=== PATIENT | female | born 1945 | race Caucasian/White ===

== ENCOUNTER 2016-10-13 07:50 | Inpatient (IN) | payer MEDICARE, BC ==
[~2016-10-13] VITALS: Ht 167.6 cm; Wt 101.7 kg
[2016-10-13 07:50] VITALS: BP 130/49
[~2016-10-13 07:50] MED LIST: ACETAMINOPHEN500 M3 PO; ALLOPURINOL100 MG PO; AMIODARONE 200200 MG PO; AMLODIPINE10 MG PO; ASPIRIN 81MG TA81 MG PO; BRILINTA90 M1 PO; CARVEDILOL6.25 MG PO; COREG25 MG PO; D3-5050000 IU PO; DEPAKOTE 500MG500 MG PO; ELIQUIS5 MG PO; HUMALOG100 U/ML SC; KEPPRA 500 MG500 MG PO; LANTUS INS100 UNITS/ SC; LASIX 20MG. TAB20 MG PO; LEVAQUIN 750 M750 MG PO; LISINOPRIL 20MG20 MG PO; NITROGLYCERIN0.4 MG SL; OMEPRAZOLE10 MG PO; PANTOPRAZOLE SO40 MG PO; PREDNISONE 20MG20 MG PO; PRILOSEC20 M1 PO; RIVASTIGMINE TAR6 MG PO; SITAGLIPTIN PO; SYNTHROID 0.10.15 MG PO; TAMIFLU 75MG CA75 MG PO; VITAMIN D31000 IU PO; ZINC GLUCONATE PO; ZOCOR20 MG PO; ZOFRAN4 MG PO
[2016-10-13 08:20] LABS: URINE BILIRUBIN - DIPSTICK NEGATIVE (NEG); URINE BLOOD NEGATIVE (NEG)
--- NOTE | 2016-10-13 08:30 | Emergency Room Report ---
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 Clinical Suspician of Infection? Mental Status: Sepsis Risk: Have you (or family members/close friends) recently traveled outside the [place]? If Yes, where/when: Have you had exposure to infectious disease within the past month? TB? Other? Specify: Six day hx of functional decline. Not speaking as much, usually gets up and "walks a little bit" at the [place] but now just transferring to chair. Has been started on Bactrim but when given the Bactrim she vomits it back up, per my d/w/ her . She vomited yesterday, and the Bactrim was not given today, and she did not vomit. She presents with low grade fever. She has a shunt, and it was CT 'd routinely by Dr. Connor two weeks ago and CT was at baseline, also per . He states that when she has UTI's she doesn't speak as much, doesn't eat as much, and has less activity; these are her symptoms today. No abdominal pain or chest pain; no headache; no rash. -Patient admitted to [facility] in 03/18 due t o ARF, wide complex tachycardia vs. paced rhythm and continued on Amiodarone and Lisinopril following cardiology consult. ALLERGIES Coded Allergies: Cephalosporins (03/20/16) ceftriaxone (From ROCEPHIN) (03/20/16) cefuroxime (From CEFTIN) (03/20/16) nitrofurantoin (From MACROBID) (03/20/16) tetanus and diphtheria toxoids (TETANUS & DIPHTHERIA TOXOIDS) (03/20/16) tuberculin,PPD,multi-puncture (10/13/16) Home Medications Reported Medications Levetiracetam (Keppra 500 Mg Tablet) 500 MG PO BID Divalproex Sodium (Depakote) 500 MG PO TID Sitagliptin Phosphate (Sitagliptin 50MG Tablet) 100 MG PO DAILY Acetaminophen (Acetaminophen Extra Strength) 650 MG PO Q4HP PRN PAIN Zinc Gluconate (ZINC) 50 MG PO DAILY CHOLECALCIFEROL (VITAMIN D3) (Vitamin D) 1,000 IUNITS PO DAILY Levothyroxine Sodium (Synthroid 0.15MG) 0.175 MG PO DAILY Rivastigmine Tartrate (Rivastigmine) 6 MG PO BID Simvastatin (Zocor) 20 MG PO QHS Insulin Glargine (Lantus Insulin Vial) 47 UNITS SC QHS Insulin Lispro, Recombinant (Humalog 100 UNITS/ML 10ML) 0 UNITS SC ACHS Pantoprazole Sodium (Pantoprazole 40MG) 40 MG PO DAILY Amiodarone Hcl (Amiodarone 200MG) 200 MG PO DAILY Ticagrelor (Brilinta) 90 MG PO BID Amlodipine Besylate (Amlodipine) 5 MG PO DAILY Carvedilol (Coreg 25MG) 25 MG PO BID NITROGLYCERIN (Nitrostat) 0.4 MG SL [id number] PRN CHEST PAIN LISINOPRIL (Lisinopril) 20 MG PO DAILY Furosemide (Lasix) 20 MG PO DAILY Sertraline Hcl (Sertraline HCl) 25 MG PO DAILY SULFAMETHOXAZOLE W/TRIMETHOPRI (Bactrim Ds Tab) 1 TABLET PO BID History Medical History General CAD? Yes Angina: No NM: No Hypertension? Yes Hyperlipidemia? No CHF? No DVT? No PE? No COPD? No Asthma? No Anemia? No GERD? Yes Gastric ulcers? No GI Bleed? No Hernia? No Thyroid Problems? Yes Hypothyroidism? Yes CVA? Yes Seizures? Yes Diabetes? Yes Insulin Dependent: Yes Insulin Pump: No Home FSBS? Yes Renal Insuffiency? Yes End Stage Renal Disease? No UTI? No Stones? No BPH? No GB Disease: No Nephritic Syndrome? No Asplenia? No Hepatitis? No Sickle Cell Disease? No Arthritis? No Migraines? No Cataracts? Yes Glaucoma? No MRSA? No HIV? 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 No Depression? No Cancer? No More? Yes Additional hx: GOUT Stent placement one month ago for complicated coronary disease. His has been on platelet inhibitor since that time Immunization Hx DT/Tetanus Unknown Pneumonia Refuses Surgical Hx Previous Surgery?Y RT KNEE REPLACEMENT SINUS X2 CATARACTS PACEMAKER Family History Family Hx Diabetes Yes CAD No Hypertension No Hyperlipidemia No Cancer No TB No Social History Alcohol Alcohol: No Review of Systems All Other Systems Reviewed and Negative Constitutional see HPI, fever, weakness Cardiovascular denies no symptoms reported, denies see HPI Gastrointestinal see HPI, denies abdominal pain Genitourinary see HPI. Psychiatric/Neurological see HPI, denies weakness, other (generalized weakness reported) Comment No billy "spells" or sz activity per detailed d/w . Physical Exam Vital Signs Vital Signs Date Time Temp Pulse Resp B/P Pulse O2 O2 Flow FiO2 Ox Delivery Rate 10/13 0928 77 20 142/52 96 3 10/13 0827 70 20 138/73 92 3 10/13 0750 100.4 70 20 130/49 93 3 General Appearance normal appearance, WD/WN, no apparent distress Eye Exam - bilateral eye normal exam, bilateral eye PERRL, bilateral eye EOMI Ear, Nose, Throat hearing grossly normal Neck normal inspection, non-tender, supple, full range of motion Respiratory Status Yes: trachea midline, chest symmetrical, non tender chest. No: respiratory distress, tender on palpation, use of accessory muscles, pain on inspiration, pain on expiration, productive cough, non productive cough. Lung Sounds bilateral: normal breath sounds, lungs clear. Cardiovascular normal exam, no peripheral edema, no gallop, no JVD, no murmur, no rub, normal peripheral pulses (hands mildly edematous L>R) Peripheral Pulses Peripheral Pulses 2+ radial (R), 2+ radial (L), 2+ dorsalis pedis (R), 2+ dorsalis pedis (L) Gastrointestinal normal bowel sounds, normal exam, non tender, soft, no organomegaly, no pulsatile mass, no guarding, no rebound Extremities non-tender, normal range of motion, normal inspection, normal capillary refill, no calf tenderness, no pedal edema (moves legs symmetrically) Strength 2 Lower Ext (L), 2 Lower Ext (R), 4 Upper Ext (L), 4 Upper Ext (R) 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 Electromechanical Equipment Tester are equal, but she seems globally weak and only barely able to elevate both legs against gravity. No tremor. No unilateral findings. Glascow Coma Scale Glascow Coma Scale Response Value EYE response: 4 Spontaneously 4 MOTOR response: 6 OBEYS 6 VERBAL response: 5 Oriented & Converses 5 Total 15 Skin intact, warm/dry, pallor Medical Decision Making LABS/Meds/Orders Pt receiving controlled substance in ED? No Results/Orders Laboratory Tests 10/13/16 0910: Sodium 140, Potassium 4.6, Chloride 102, Carbon Dioxide 29, BUN 44 H, Creatinine 2.6 H, Estimated Creat Clear 32 L, Estimated GFR (MDRD) , Glucose 152 H, Calcium 9.2, Total Bilirubin 0.4, AST 27, ALT 43, Alkaline Phosphatase 80, Creatine Kinase 124, CK-MB (CK-2) Rel Index 0.4, CK and CKMB Interp < 0.5, Troponin I < 0.02, Total Protein 8.2, Albumin 3.0 L, Globulin 5.2 H, Albumin/ Globulin Ratio 0.6 L 10/13/16 0830: Lactic Acid 0.8, WBC 6.8, RBC 4.06 L, Hgb 12.7, Hct 38.0, MCV 93.4, RDW 16.4, Plt Count 163, MPV 7.4, Gran % 59.3, Gran # 4.0, Lymphocytes % 29.6, Monocytes % 8.3, Eosinophils % 2.3, Basophils % 0.4, Lymphocytes # 2.0, Monocytes # 0.6, Eosinophils # 0.2, Basophils # 0.0, PUBS MCHC 32.9, MCH 30.7 10/13/16 0810: Urine Color YELLOW, Urine Appearance SL CLOUDY, Urine pH 6.5, Ur Specific [place] 1.015, Urine Protein NEGATIVE, Urine Ketones NEGATIVE, Urine Blood NEGATIVE, Urine Nitrate NEGATIVE, Urine Bilirubin NEGATIVE, Urine Urobilinogen 2.0, Ur Leukocyte Esterase 2+ H, Urine WBC 20-50, Ur Squamous Epith Cells 3-5, Urine Bacteria 2+, Urine Glucose NEGATIVE Current Medication Orders Sig/Charlene Start time Last Medication Dose Route Stop Time Status Admin Levofloxacin/Dextrose 100 ML .STK-MED ONE 10/13 928 DC IV Levofloxacin/Dextrose 100 ML ONCE ONE 10/13 914 AC 10/13 IV 10/13 1014 0931 Sodium Chloride 10 ML PRN PRN 10/13 814 IV 10/14 08 Acetaminophen 650 MG ONCE ONE 10/13 809 DC 10/13 OH 10/13 810 0815 Acetaminophen 0 .STK-MED ONE 10/13 0808 DC OH Orders Procedure Date/time Status DIET-NOTHING BY MOUTH 10/13 L Active Decision to admit 10/[address] HEAD REQ 10/13 08 Complete ELECTROCARDIOGRAM REQUEST 10/13 810 Active IV SALINE LOCK 10/13 810 Active URINARY CATHETER INSERT 10/13 810 Active CULTURE, BLOOD 10/13 810 Active URINALYSIS/COMPLETE 10/13 810 Complete LACTIC ACID 10/13 810 Complete CBC WITH AUTO DIFF 10/13 810 Complete CARDIAC ENZYMES 10/13 810 Complete CHEM 12 PROFILE 10/13 810 Complete 12 LEAD EKG-CASSIE (INITIAL) 10/13 809 Active CULTURE, URINE 10/13 809 Active CM/EKG CM/EKG EKG rate, NSR, rhythm, no evid. of ischemic chgs, no ectopy, normal QRS, normal OH, normal EKG (LVH; NSR 77) XRAY/CT/US XRAY/CT/US XRAY chest XR interpretation by reviewed by me (report reviewed) Xray Results normal/NAD CT head CT interpretation by reviewed by me (report reviewed) Time results known: 916 CT Results normal/NAD (atrophy no interval change) Consult MD Physician Consult Time Called 0936 Reason Pt. Condition Progress ED Progress Notes Date 10/13/16 Time 0856 Comment Patient listed as a full code on chart; on d/w , he and his have not discussed her code status. He agrees to have this conversation with her and other family members and her PCP and he wishes to complete paperwork at some other time, but doubts she would want full resuscitation. 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
--- NOTE | 2016-10-13 08:30 | Emergency Room Report ---
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 Clinical Suspician of Infection? Mental Status: Sepsis Risk: Have you (or family members/close friends) recently traveled outside the [place]? If Yes, where/when: Have you had exposure to infectious disease within the past month? TB? Other? Specify: Six day hx of functional decline. Not speaking as much, usually gets up and "walks a little bit" at the [place] but now just transferring to chair. Has been started on Bactrim but when given the Bactrim she vomits it back up, per my d/w/ her . She vomited yesterday, and the Bactrim was not given today, and she did not vomit. She presents with low grade fever. She has a shunt, and it was CT 'd routinely by Dr. Connor two weeks ago and CT was at baseline, also per . He states that when she has UTI's she doesn't speak as much, doesn't eat as much, and has less activity; these are her symptoms today. No abdominal pain or chest pain; no headache; no rash. -Patient admitted to [facility] in 03/18 due t o ARF, wide complex tachycardia vs. paced rhythm and continued on Amiodarone and Lisinopril following cardiology consult. ALLERGIES Coded Allergies: Cephalosporins (03/20/16) ceftriaxone (From ROCEPHIN) (03/20/16) cefuroxime (From CEFTIN) (03/20/16) nitrofurantoin (From MACROBID) (03/20/16) tetanus and diphtheria toxoids (TETANUS & DIPHTHERIA TOXOIDS) (03/20/16) tuberculin,PPD,multi-puncture (10/13/16) Home Medications Reported Medications Levetiracetam (Keppra 500 Mg Tablet) 500 MG PO BID Divalproex Sodium (Depakote) 500 MG PO TID Sitagliptin Phosphate (Sitagliptin 50MG Tablet) 100 MG PO DAILY Acetaminophen (Acetaminophen Extra Strength) 650 MG PO Q4HP PRN PAIN Zinc Gluconate (ZINC) 50 MG PO DAILY CHOLECALCIFEROL (VITAMIN D3) (Vitamin D) 1,000 IUNITS PO DAILY Levothyroxine Sodium (Synthroid 0.15MG) 0.175 MG PO DAILY Rivastigmine Tartrate (Rivastigmine) 6 MG PO BID Simvastatin (Zocor) 20 MG PO QHS Insulin Glargine (Lantus Insulin Vial) 47 UNITS SC QHS Insulin Lispro, Recombinant (Humalog 100 UNITS/ML 10ML) 0 UNITS SC ACHS Pantoprazole Sodium (Pantoprazole 40MG) 40 MG PO DAILY Amiodarone Hcl (Amiodarone 200MG) 200 MG PO DAILY Ticagrelor (Brilinta) 90 MG PO BID Amlodipine Besylate (Amlodipine) 5 MG PO DAILY Carvedilol (Coreg 25MG) 25 MG PO BID NITROGLYCERIN (Nitrostat) 0.4 MG SL [id number] PRN CHEST PAIN LISINOPRIL (Lisinopril) 20 MG PO DAILY Furosemide (Lasix) 20 MG PO DAILY Sertraline Hcl (Sertraline HCl) 25 MG PO DAILY SULFAMETHOXAZOLE W/TRIMETHOPRI (Bactrim Ds Tab) 1 TABLET PO BID History Medical History General CAD? Yes Angina: No PR: No Hypertension? Yes Hyperlipidemia? No CHF? No DVT? No PE? No COPD? No Asthma? No Anemia? No GERD? Yes Gastric ulcers? No GI Bleed? No Hernia? No Thyroid Problems? Yes Hypothyroidism? Yes CVA? Yes Seizures? Yes Diabetes? Yes Insulin Dependent: Yes Insulin Pump: No Home FSBS? Yes Renal Insuffiency? Yes End Stage Renal Disease? No UTI? No Stones? No BPH? No GB Disease: No Nephritic Syndrome? No Asplenia? No Hepatitis? No Sickle Cell Disease? No Arthritis? No Migraines? No Cataracts? Yes Glaucoma? No MRSA? No HIV? 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 No Depression? No Cancer? No More? Yes Additional hx: GOUT Stent placement one month ago for complicated coronary disease. His has been on platelet inhibitor since that time Immunization Hx DT/Tetanus Unknown Pneumonia Refuses Surgical Hx Previous Surgery?Y RT KNEE REPLACEMENT SINUS X2 CATARACTS PACEMAKER Family History Family Hx Diabetes Yes CAD No Hypertension No Hyperlipidemia No Cancer No TB No Social History Alcohol Alcohol: No Review of Systems All Other Systems Reviewed and Negative Constitutional see HPI, fever, weakness Cardiovascular denies no symptoms reported, denies see HPI Gastrointestinal see HPI, denies abdominal pain Genitourinary see HPI. Psychiatric/Neurological see HPI, denies weakness, other (generalized weakness reported) Comment No billy "spells" or sz activity per detailed d/w . Physical Exam Vital Signs Vital Signs Date Time Temp Pulse Resp B/P Pulse O2 O2 Flow FiO2 Ox Delivery Rate 10/13 0928 77 20 142/52 96 3 10/13 0827 70 20 138/73 92 3 10/13 0750 100.4 70 20 130/49 93 3 General Appearance normal appearance, WD/WN, no apparent distress Eye Exam - bilateral eye normal exam, bilateral eye PERRL, bilateral eye EOMI Ear, Nose, Throat hearing grossly normal Neck normal inspection, non-tender, supple, full range of motion Respiratory Status Yes: trachea midline, chest symmetrical, non tender chest. No: respiratory distress, tender on palpation, use of accessory muscles, pain on inspiration, pain on expiration, productive cough, non productive cough. Lung Sounds bilateral: normal breath sounds, lungs clear. Cardiovascular normal exam, no peripheral edema, no gallop, no JVD, no murmur, no rub, normal peripheral pulses (hands mildly edematous L>R) Peripheral Pulses Peripheral Pulses 2+ radial (R), 2+ radial (L), 2+ dorsalis pedis (R), 2+ dorsalis pedis (L) Gastrointestinal normal bowel sounds, normal exam, non tender, soft, no organomegaly, no pulsatile mass, no guarding, no rebound Extremities non-tender, normal range of motion, normal inspection, normal capillary refill, no calf tenderness, no pedal edema (moves legs symmetrically) Strength 2 Lower Ext (L), 2 Lower Ext (R), 4 Upper Ext (L), 4 Upper Ext (R) 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 Water Filter Cleaner are equal, but she seems globally weak and only barely able to elevate both legs against gravity. No tremor. No unilateral findings. Glascow Coma Scale Glascow Coma Scale Response Value EYE response: 4 Spontaneously 4 MOTOR response: 6 OBEYS 6 VERBAL response: 5 Oriented & Converses 5 Total 15 Skin intact, warm/dry, pallor Medical Decision Making LABS/Meds/Orders Pt receiving controlled substance in ED? No Results/Orders Laboratory Tests 10/13/16 0910: Sodium 140, Potassium 4.6, Chloride 102, Carbon Dioxide 29, BUN 44 H, Creatinine 2.6 H, Estimated Creat Clear 32 L, Estimated GFR (MDRD) , Glucose 152 H, Calcium 9.2, Total Bilirubin 0.4, AST 27, ALT 43, Alkaline Phosphatase 80, Creatine Kinase 124, CK-MB (CK-2) Rel Index 0.4, CK and CKMB Interp < 0.5, Troponin I < 0.02, Total Protein 8.2, Albumin 3.0 L, Globulin 5.2 H, Albumin/ Globulin Ratio 0.6 L 10/13/16 0830: Lactic Acid 0.8, WBC 6.8, RBC 4.06 L, Hgb 12.7, Hct 38.0, MCV 93.4, RDW 16.4, Plt Count 163, MPV 7.4, Gran % 59.3, Gran # 4.0, Lymphocytes % 29.6, Monocytes % 8.3, Eosinophils % 2.3, Basophils % 0.4, Lymphocytes # 2.0, Monocytes # 0.6, Eosinophils # 0.2, Basophils # 0.0, PUBS MCHC 32.9, MCH 30.7 10/13/16 0810: Urine Color YELLOW, Urine Appearance SL CLOUDY, Urine pH 6.5, Ur Specific [place] 1.015, Urine Protein NEGATIVE, Urine Ketones NEGATIVE, Urine Blood NEGATIVE, Urine Nitrate NEGATIVE, Urine Bilirubin NEGATIVE, Urine Urobilinogen 2.0, Ur Leukocyte Esterase 2+ H, Urine WBC 20-50, Ur Squamous Epith Cells 3-5, Urine Bacteria 2+, Urine Glucose NEGATIVE Current Medication Orders Sig/Charlene Start time Last Medication Dose Route Stop Time Status Admin Levofloxacin/Dextrose 100 ML .STK-MED ONE 10/13 928 DC IV Levofloxacin/Dextrose 100 ML ONCE ONE 10/13 914 AC 10/13 IV 10/13 1014 0931 Sodium Chloride 10 ML PRN PRN 10/13 814 IV 10/14 08 Acetaminophen 650 MG ONCE ONE 10/13 809 DC 10/13 ME 10/13 810 0815 Acetaminophen 0 .STK-MED ONE 10/13 0808 DC ME Orders Procedure Date/time Status DIET-NOTHING BY MOUTH 10/13 L Active Decision to admit 10/[address] HEAD REQ 10/13 08 Complete ELECTROCARDIOGRAM REQUEST 10/13 810 Active IV SALINE LOCK 10/13 810 Active URINARY CATHETER INSERT 10/13 810 Active CULTURE, BLOOD 10/13 810 Active URINALYSIS/COMPLETE 10/13 810 Complete LACTIC ACID 10/13 810 Complete CBC WITH AUTO DIFF 10/13 810 Complete CARDIAC ENZYMES 10/13 810 Complete CHEM 12 PROFILE 10/13 810 Complete 12 LEAD EKG-CASSIE (INITIAL) 10/13 809 Active CULTURE, URINE 10/13 809 Active CM/EKG CM/EKG EKG rate, NSR, rhythm, no evid. of ischemic chgs, no ectopy, normal QRS, normal ME, normal EKG (LVH; NSR 77) XRAY/CT/US XRAY/CT/US XRAY chest XR interpretation by reviewed by me (report reviewed) Xray Results normal/NAD CT head CT interpretation by reviewed by me (report reviewed) Time results known: 916 CT Results normal/NAD (atrophy no interval change) Consult MD Physician Consult Time Called 0936 Reason Pt. Condition Progress ED Progress Notes Date 10/13/16 Time 0856 Comment Patient listed as a full code on chart; on d/w , he and his have not discussed her code status. He agrees to have this conversation with her and other family members and her PCP and he wishes to complete paperwork at some other time, but doubts she would want full resuscitation. 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
[2016-10-13 08:41] LABS: LYMPH % 29.6 % (10-50.0)
[2016-10-13 08:46] LABS: HEMOGLOBIN 12.7 g/dL (12.2-16.2)
[2016-10-13] MEDS ORDERED: LISINOPRIL 20MG20 MG PO (08:55)
[2016-10-13] MEDS ORDERED: LASIX20 MG PO (08:59)
[2016-10-13] MEDS ORDERED: SERTRALINE25 MG PO (09:04)
--- NOTE | 2016-10-13 09:05 | RADIOLOGY REPORT PS360 ---
CHEST-PORTABLE HISTORY: FEBRILE ORDERING PHYSICIAN: Pamela Roy MD PATIENT AGE: 71 years COMPARISON: 03/20/2016 FINDINGS: Normal heart size. Cardiac pacemaker device is once again noted. A INSPECTION ENGINEER shunt traverses the right hemithorax. There is some vascular crowding in the right infrahilar region. No lobar consolidation or collapse. There is an old right clavicular fracture. IMPRESSION: As above, no change with no acute finding.
--- NOTE | 2016-10-13 09:05 | RADIOLOGY REPORT PS360 ---
CHEST-PORTABLE HISTORY: FEBRILE ORDERING PHYSICIAN: Pamela Roy MD PATIENT AGE: 71 years COMPARISON: 03/20/2016 FINDINGS: Normal heart size. Cardiac pacemaker device is once again noted. A MOLD MACHINE OPERATOR shunt traverses the right hemithorax. There is some vascular crowding in the right infrahilar region. No lobar consolidation or collapse. There is an old right clavicular fracture. IMPRESSION: As above, no change with no acute finding.
--- NOTE | 2016-10-13 09:11 | RADIOLOGY REPORT PS360 ---
CT HEAD W/O CONTRAST HISTORY: Altered mental status, altered level consciousness, confusion AMS ORDERING PHYSICIAN: Pamela Roy MD PATIENT AGE: 71 years COMPARISON: 09/20/2016 TECHNIQUE: Axial images obtained without contrast. Brain and bone windows reviewed. FINDINGS: No midline shift, mass effect, intracranial hemorrhage, hydrocephalus, or extra-axial fluid collection is evident. There is a BP shunt from the right parietal approach with the tip near the midline at the body of the lateral ventricles as before. There is generalized atrophy with mild prominence of the ventricles likely related to the atrophy. Hypoattenuation is noted in the periventricular and subcortical region consistent with ischemic gliotic change from microvascular disease. The calvarium has an unremarkable appearance. No mastoid effusion. The visualized paranasal sinuses are unremarkable. IMPRESSION: 1. No acute intracranial pathology. 2. Atrophy with chronic ischemic changes. 3. No change right parietal the patient.
[2016-10-13] MEDS ORDERED: BACTRIM DS 8001 TA1 PO (09:19)
[2016-10-13 09:29] LABS: BUN 44 mg/dL (7-18)
--- NOTE | 2016-10-13 10:40 | PHARMACY CLINIC NOTE ---
Patient Demographics Patient Demographics Admission date: 10/13/16 Date: 10/13/16 Time: 1040 Allergies Coded Allergies: Cephalosporins (03/20/16) ceftriaxone (From ROCEPHIN) (03/20/16) cefuroxime (From CEFTIN) (03/20/16) nitrofurantoin (From MACROBID) (03/20/16) tetanus and diphtheria toxoids (TETANUS & DIPHTHERIA TOXOIDS) (03/20/16) tuberculin,PPD,multi-puncture (10/13/16) HEIGHT- FT: 5 IN: 6.00 K.328 VTE General Information Labs: Laboratory Tests 10/13 0830 Hematology Hgb (12.2 - 16.2 g/dL) 12.7 Hct (37.0 - 47.0 %) 38.0 Plt Count (142 - 424 K/mm3) 163 Disclaimer The following section includes nursing documentation that has been pulled in for pharmacy review. VTE prophylaxis NQF 0371 VTE prophylaxis ordered? Yes Type of prophylaxis/treatment: ICD at 1040
[2016-10-13 10:50] VITALS: BP 132/66
[2016-10-13 11:12] VITALS: BP 132/66
--- NOTE | 2016-10-13 14:38 | HISTORY AND PHYSICAL REPORT ---
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 reports she typically walks a little bit, feeds herself and is able to recognize him when he visits. She has a TRAIN CONTROLLER shunt and is followed by Dr. Connor. state she has routine CT scans, the most recent 2 weeks ago which he states was a baseline. She was started on Bactrim at the care home several days when her UA was found to be positive for UTI. Urine culture was sent; however it showed no growth. On presentation to the ED, she was found to be lethargic and confused. UA was positive. She was given a dose of IV Levaquin and admitted to acute care for further evaluation. On admission to the floor, she was alert and oriented to self, awake and answering simple questions. denies congestion, however reports occasional cough and difficulty swallowing this week. Past medical history: Family HX Diabetes Yes CAD Yes Hypertension Yes Hyperlipidemia Yes Cancer Yes TB No Immunization HX DT/Tetanus Refuses Pneumonia Received In Past TB Test in last year No General CAD? Yes Angina: No MT: No Hypertension? Yes Hyperlipidemia? No CHF? No DVT? No PE? No COPD? No Asthma? No Anemia? No GERD? Yes Gastric ulcers? No GI Bleed? No Hernia? No Thyroid Problems? No Hypothyroidism? Yes CVA? Yes Seizures? Yes Diabetes? Yes Insulin Dependent: No Insulin Pump: No Home FSBS? Yes Renal Insuffiency? Yes UTI? Yes Stones? No BPH? No GB Disease: No Nephritic Syndrome? No Asplenia? No Hepatitis? No Sickle Cell Disease? No Arthritis? Yes Migraines? Yes Cataracts? No Glaucoma? No MRSA? No HIV? No TB? No Anxiety? Yes Depression? Yes Cancer? Yes Site: SKIN More? Yes Additional hx: HX OF BACTERIAL MENGIGITIS, AFIB Past Surgical HX Previous Surgery?Y RT KNEE SINUS X2 PACEMAKER PACEMAKER Current home meds: Reported Medications Levetiracetam (Keppra 500 Mg Tablet) 500 MG PO BID Divalproex Sodium (Depakote) 500 MG PO TID Sitagliptin Phosphate (Sitagliptin 50MG Tablet) 100 MG PO DAILY Acetaminophen (Acetaminophen Extra Strength) 650 MG PO Q4HP PRN PAIN Zinc Gluconate (ZINC) 50 MG PO DAILY CHOLECALCIFEROL (VITAMIN D3) (Vitamin D) 1,000 IUNITS PO DAILY Levothyroxine Sodium (Synthroid 0.15MG) 0.175 MG PO DAILY Rivastigmine Tartrate (Rivastigmine) 6 MG PO BID Simvastatin (Zocor) 20 MG PO QHS Insulin Glargine (Lantus Insulin Vial) 47 UNITS SC QHS Insulin Lispro, Recombinant (Humalog 100 UNITS/ML 10ML) 0 UNITS SC ACHS Pantoprazole Sodium (Pantoprazole 40MG) 40 MG PO DAILY Amiodarone Hcl (Amiodarone 200MG) 200 MG PO DAILY Ticagrelor (Brilinta) 90 MG PO BID Amlodipine Besylate (Amlodipine) 5 MG PO DAILY Carvedilol (Coreg 25MG) 25 MG PO BID NITROGLYCERIN (Nitrostat) 0.4 MG SL [id number] PRN CHEST PAIN LISINOPRIL (Lisinopril) 20 MG PO DAILY Furosemide (Lasix) 20 MG PO DAILY Sertraline Hcl (Sertraline HCl) 25 MG PO DAILY SULFAMETHOXAZOLE W/TRIMETHOPRI (Bactrim Ds Tab) 1 TABLET PO BID Social Hx: Smoking HX Tobacco No Are you/the child exposed to second-hand smoke: No Alcohol Alcohol: No Hx of Drug Use Drug Use? No Patient's support system is good Review of systems: Constitutional fever, weakness. No: chills, diaphoresis, malaise. Eyes No: no symptoms reported. Ears, Nose, Mouth, Throat No no symptoms reported Respiratory cough. No: shortness of breath, wheezing. Cardiovascular No no symptoms reported Gastrointestinal/Abdominal No no symptoms reported Genitourinary No: see HPI. Musculoskeletal No: no symptoms reported. Skin No: no symptoms reported. Neurological No: see HPI, no symptoms reported. Psychiatric No: no symptoms reported. Exam: Lab data for last 24 hours: Laboratory Tests 10/13/16909: Sodium 140, Potassium 4.6, Chloride 102, Carbon Dioxide 29, BUN 44 H, Creatinine 2.6 H, Estimated Creat Clear 32 L, Estimated GFR (MDRD) , Glucose 152 H, Calcium 9.2, Total Bilirubin 0.4, AST 27, ALT 43, Alkaline Phosphatase 80, Creatine Kinase 124, CK-MB (CK-2) Rel Index 0.4, CK and CKMB Interp < 0.5, Troponin I < 0.02, Total Protein 8.2, Albumin 3.0 L, Globulin 5.2 H, Albumin/ Globulin Ratio 0.6 L, Valproic Acid 58.2 10/13/16829: Lactic Acid 0.8, WBC 6.8, RBC 4.06 L, Hgb 12.7, Hct 38.0, MCV 93.4, RDW 16.4, Plt Count 163, MPV 7.4, Gran % 59.3, Gran # 4.0, Lymphocytes % 29.6, Monocytes % 8.3, Eosinophils % 2.3, Basophils % 0.4, Lymphocytes # 2.0, Monocytes # 0.6, Eosinophils # 0.2, Basophils # 0.0, PUBS MCHC 32.9, MCH 30.7 10/13/16 0810: Urine Color YELLOW, Urine Appearance SL CLOUDY, Urine pH 6.5, Ur Specific [place] 1.015, Urine Protein NEGATIVE, Urine Ketones NEGATIVE, Urine Blood NEGATIVE, Urine Nitrate NEGATIVE, Urine Bilirubin NEGATIVE, Urine Urobilinogen 2.0, Ur Leukocyte Esterase 2+ H, Urine WBC 20-50, Ur Squamous Epith Cells 3-5, Urine Bacteria 2+, Urine Glucose NEGATIVE Microbiology 10/13 909 BLOOD: Anaerobic Blood Culture - RECD 10/13 909 BLOOD: Aerobic Blood Culture - RECD 10/13 829 BLOOD: Anaerobic Blood Culture - RECD 10/14 0730 BLOOD: Aerobic Blood Culture - RECD 10/13 0810 URINE CATH: Urine Culture - RECD Admission vital signs: 1ST Vital Signs Result Date Time Pulse Ox 93 10/13 0750 B/P 130/49 10/13 0750 O2 Flow Rate 3 10/13 0750 Temp 100.4 10/13 0750 Pulse 70 10/13 0750 Resp 20 10/13 0750 O2 Delivery OXYGEN 10/13 1046 Exam General appearance: alert, awake, no acute distress, oriented to self only Eyes: anicteric ENT: mucous membranes moist Neck: no carotid bruit, no JVD Cardiovascular: regular rate & rhythm, no murmur, normal peripheral pulses Respiratory: clear to auscultation ABD: non-distended, normal bowel sounds, no rebound, soft, no tenderness Genitourinary: normal voiding & quantity, no dysuria Extremities: trace LE edema, RASHEED Musculoskeletal: moves all Skin: dry, intact, normal color Neuro: alert, answers simple questions, oriented to self Plan: Problem List 1. UTI (urinary tract infection) Assessment/Plan Urine culture pending. Continue Levquin. 2. Generalized weakness Assessment/Plan Likely related to UTI. Given husbands report of coughing when eating and difficulty swallowing, will obtain bedside swallowing eval. 3. Declining functional status Assessment/Plan See above. 4. Fever Plan: see above at [id number] at [phone]
--- NOTE | 2016-10-13 14:38 | HISTORY AND PHYSICAL REPORT ---
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 reports she typically walks a little bit, feeds herself and is able to recognize him when he visits. She has a CRAFT COORDINATOR shunt and is followed by Dr. Connor. state she has routine CT scans, the most recent 2 weeks ago which he states was a baseline. She was started on Bactrim at the group home several days when her UA was found to be positive for UTI. Urine culture was sent; however it showed no growth. On presentation to the ED, she was found to be lethargic and confused. UA was positive. She was given a dose of IV Levaquin and admitted to acute care for further evaluation. On admission to the floor, she was alert and oriented to self, awake and answering simple questions. denies congestion, however reports occasional cough and difficulty swallowing this week. Past medical history: Family HX Diabetes Yes CAD Yes Hypertension Yes Hyperlipidemia Yes Cancer Yes TB No Immunization HX DT/Tetanus Refuses Pneumonia Received In Past TB Test in last year No General CAD? Yes Angina: No SD: No Hypertension? Yes Hyperlipidemia? No CHF? No DVT? No PE? No COPD? No Asthma? No Anemia? No GERD? Yes Gastric ulcers? No GI Bleed? No Hernia? No Thyroid Problems? No Hypothyroidism? Yes CVA? Yes Seizures? Yes Diabetes? Yes Insulin Dependent: No Insulin Pump: No Home FSBS? Yes Renal Insuffiency? Yes UTI? Yes Stones? No BPH? No GB Disease: No Nephritic Syndrome? No Asplenia? No Hepatitis? No Sickle Cell Disease? No Arthritis? Yes Migraines? Yes Cataracts? No Glaucoma? No MRSA? No HIV? No TB? No Anxiety? Yes Depression? Yes Cancer? Yes Site: SKIN More? Yes Additional hx: HX OF BACTERIAL MENGIGITIS, AFIB Past Surgical HX Previous Surgery?Y RT KNEE SINUS X2 PACEMAKER PACEMAKER Current home meds: Reported Medications Levetiracetam (Keppra 500 Mg Tablet) 500 MG PO BID Divalproex Sodium (Depakote) 500 MG PO TID Sitagliptin Phosphate (Sitagliptin 50MG Tablet) 100 MG PO DAILY Acetaminophen (Acetaminophen Extra Strength) 650 MG PO Q4HP PRN PAIN Zinc Gluconate (ZINC) 50 MG PO DAILY CHOLECALCIFEROL (VITAMIN D3) (Vitamin D) 1,000 IUNITS PO DAILY Levothyroxine Sodium (Synthroid 0.15MG) 0.175 MG PO DAILY Rivastigmine Tartrate (Rivastigmine) 6 MG PO BID Simvastatin (Zocor) 20 MG PO QHS Insulin Glargine (Lantus Insulin Vial) 47 UNITS SC QHS Insulin Lispro, Recombinant (Humalog 100 UNITS/ML 10ML) 0 UNITS SC ACHS Pantoprazole Sodium (Pantoprazole 40MG) 40 MG PO DAILY Amiodarone Hcl (Amiodarone 200MG) 200 MG PO DAILY Ticagrelor (Brilinta) 90 MG PO BID Amlodipine Besylate (Amlodipine) 5 MG PO DAILY Carvedilol (Coreg 25MG) 25 MG PO BID NITROGLYCERIN (Nitrostat) 0.4 MG SL [id number] PRN CHEST PAIN LISINOPRIL (Lisinopril) 20 MG PO DAILY Furosemide (Lasix) 20 MG PO DAILY Sertraline Hcl (Sertraline HCl) 25 MG PO DAILY SULFAMETHOXAZOLE W/TRIMETHOPRI (Bactrim Ds Tab) 1 TABLET PO BID Social Hx: Smoking HX Tobacco No Are you/the child exposed to second-hand smoke: No Alcohol Alcohol: No Hx of Drug Use Drug Use? No Patient's support system is good Review of systems: Constitutional fever, weakness. No: chills, diaphoresis, malaise. Eyes No: no symptoms reported. Ears, Nose, Mouth, Throat No no symptoms reported Respiratory cough. No: shortness of breath, wheezing. Cardiovascular No no symptoms reported Gastrointestinal/Abdominal No no symptoms reported Genitourinary No: see HPI. Musculoskeletal No: no symptoms reported. Skin No: no symptoms reported. Neurological No: see HPI, no symptoms reported. Psychiatric No: no symptoms reported. Exam: Lab data for last 24 hours: Laboratory Tests 10/13/16909: Sodium 140, Potassium 4.6, Chloride 102, Carbon Dioxide 29, BUN 44 H, Creatinine 2.6 H, Estimated Creat Clear 32 L, Estimated GFR (MDRD) , Glucose 152 H, Calcium 9.2, Total Bilirubin 0.4, AST 27, ALT 43, Alkaline Phosphatase 80, Creatine Kinase 124, CK-MB (CK-2) Rel Index 0.4, CK and CKMB Interp < 0.5, Troponin I < 0.02, Total Protein 8.2, Albumin 3.0 L, Globulin 5.2 H, Albumin/ Globulin Ratio 0.6 L, Valproic Acid 58.2 10/13/16829: Lactic Acid 0.8, WBC 6.8, RBC 4.06 L, Hgb 12.7, Hct 38.0, MCV 93.4, RDW 16.4, Plt Count 163, MPV 7.4, Gran % 59.3, Gran # 4.0, Lymphocytes % 29.6, Monocytes % 8.3, Eosinophils % 2.3, Basophils % 0.4, Lymphocytes # 2.0, Monocytes # 0.6, Eosinophils # 0.2, Basophils # 0.0, PUBS MCHC 32.9, MCH 30.7 10/13/16 0810: Urine Color YELLOW, Urine Appearance SL CLOUDY, Urine pH 6.5, Ur Specific [place] 1.015, Urine Protein NEGATIVE, Urine Ketones NEGATIVE, Urine Blood NEGATIVE, Urine Nitrate NEGATIVE, Urine Bilirubin NEGATIVE, Urine Urobilinogen 2.0, Ur Leukocyte Esterase 2+ H, Urine WBC 20-50, Ur Squamous Epith Cells 3-5, Urine Bacteria 2+, Urine Glucose NEGATIVE Microbiology 10/13 909 BLOOD: Anaerobic Blood Culture - RECD 10/13 909 BLOOD: Aerobic Blood Culture - RECD 10/13 829 BLOOD: Anaerobic Blood Culture - RECD 10/14 0730 BLOOD: Aerobic Blood Culture - RECD 10/13 0810 URINE CATH: Urine Culture - RECD Admission vital signs: 1ST Vital Signs Result Date Time Pulse Ox 93 10/13 0750 B/P 130/49 10/13 0750 O2 Flow Rate 3 10/13 0750 Temp 100.4 10/13 0750 Pulse 70 10/13 0750 Resp 20 10/13 0750 O2 Delivery OXYGEN 10/13 1046 Exam General appearance: alert, awake, no acute distress, oriented to self only Eyes: anicteric ENT: mucous membranes moist Neck: no carotid bruit, no JVD Cardiovascular: regular rate & rhythm, no murmur, normal peripheral pulses Respiratory: clear to auscultation ABD: non-distended, normal bowel sounds, no rebound, soft, no tenderness Genitourinary: normal voiding & quantity, no dysuria Extremities: trace LE edema, RASHEED Musculoskeletal: moves all Skin: dry, intact, normal color Neuro: alert, answers simple questions, oriented to self Plan: Problem List 1. UTI (urinary tract infection) Assessment/Plan Urine culture pending. Continue Levquin. 2. Generalized weakness Assessment/Plan Likely related to UTI. Given husbands report of coughing when eating and difficulty swallowing, will obtain bedside swallowing eval. 3. Declining functional status Assessment/Plan See above. 4. Fever Plan: see above at [phone] at [phone]
--- NOTE | 2016-10-13 15:14 | ST BEDSIDE DYSPHAGIA EVAL ---
SUBJECTIVE-DYSPHAGIA Date: 10/13/16 Time: 1450 Eval Type: Initial Certification - Admitted Date: 10/13/16 Primary Diagnosis: UTI, FEVER, WEAKNESS Reason for Consult: DYSPHAGIA Pt/Caregiver Concerns: GULPING WHILE SWALLOWING WATER Onset of symptoms- 10/06/16 MEDICAL HX UNKNOWN Symptoms have worsened? NO improved? NO resolved? NO since onset. Current Diet: REGULAR/THINS Allergies Coded Allergies: Cephalosporins (03/20/16) ceftriaxone (From ROCEPHIN) (03/20/16) cefuroxime (From CEFTIN) (03/20/16) nitrofurantoin (From MACROBID) (03/20/16) tetanus and diphtheria toxoids (TETANUS & DIPHTHERIA TOXOIDS) (03/20/16) tuberculin,PPD,multi-puncture (10/13/16) Home Medications Reported Medications Levetiracetam (Keppra 500 Mg Tablet) 500 MG PO BID Divalproex Sodium (Depakote) 500 MG PO TID Sitagliptin Phosphate (Sitagliptin 50MG Tablet) 100 MG PO DAILY Acetaminophen (Acetaminophen Extra Strength) 650 MG PO Q4HP PRN PAIN Zinc Gluconate (ZINC) 50 MG PO DAILY CHOLECALCIFEROL (VITAMIN D3) (Vitamin D) 1,000 IUNITS PO DAILY Levothyroxine Sodium (Synthroid 0.15MG) 0.175 MG PO DAILY Rivastigmine Tartrate (Rivastigmine) 6 MG PO BID Simvastatin (Zocor) 20 MG PO QHS Insulin Glargine (Lantus Insulin Vial) 47 UNITS SC QHS Insulin Lispro, Recombinant (Humalog 100 UNITS/ML 10ML) 0 UNITS SC ACHS Pantoprazole Sodium (Pantoprazole 40MG) 40 MG PO DAILY Amiodarone Hcl (Amiodarone 200MG) 200 MG PO DAILY Ticagrelor (Brilinta) 90 MG PO BID Amlodipine Besylate (Amlodipine) 5 MG PO DAILY Carvedilol (Coreg 25MG) 25 MG PO BID NITROGLYCERIN (Nitrostat) 0.4 MG SL [id number] PRN CHEST PAIN LISINOPRIL (Lisinopril) 20 MG PO DAILY Furosemide (Lasix) 20 MG PO DAILY Sertraline Hcl (Sertraline HCl) 25 MG PO DAILY SULFAMETHOXAZOLE W/TRIMETHOPRI (Bactrim Ds Tab) 1 TABLET PO BID Is this assessment r/t stroke? No OBJECTIVE COMMUNICATION/COGNITION Barriers to communication/cog? Yes Orientation POS: Name, Other (BIRTHDAY). NEG: Place, Day, Date, Year. Follows Commands POS: Follows 1-step commands. NEG: Follows 2-step commands. Able to remember swallow strategies? No Intelligibility Good Barriers to communication: DECREASED ORIENTATION ORAL-MOTOR STRUCTURE/FUNCTION Structure/Function WFL: Labial, Buccal, Lingual, Velar, Mandibular. Facial Asymmetry None Laryngeal Function Strong: Voluntary Cough, Throat Clearing. Vocal Quality Normal Dentition Good dentition RESPIRATORY STATUS/HISTORY Is resp status/hx a concern? Yes Requires Oxygen: Cannula Breathes from mouth? No Risk-fatigue due to comp.resp? No DYSPHAGIA SIGNS W/CONSISTENCY Any S/S of Dysphagia? No ASSESSMENT/PLAN ASSESSMENT Impression Ms. Retana, a 71 year old female, was referred for a bedside evaluation of swallowing by her physician, Rody Allen APRN. Ms. Retana's was present for evaluation and reports she had difficulty with water yesterday. He reported "she gulped water yesterday and it was different from normal". Ms. Retana was given the following consistencies: thins via straw and open cup, pudding, and regular. No signs of dysphagia were noticed. At this time, it is recommended Ms. Retana be placed on regular diet with thin liquids. Speech therapy is not recommended. PLAN RECOMMENDATIONS Further skill serv. indicated No SWALLOW GUIDELINES Standard Aspiration Prec. PATIENT/CAREGIVER SIGNS AND DISPLAYS SALES REPRESENTATIVE educated on Diet Consistency Rehab Medicare G Code Plan Medicare/G Code eligible? Yes Therapy Discipline Plan: CARDIOLOGY CLINICAL NURSE SPECIALIST PLAN OF CARE G Code Current Status: SWALLOWING (G8996) Current Status Modifier: 1%-19% IMPAIRED (CI) G Code Goal Status: SWALLOWING (G8997) Goal Status Modifier: 1%-19% IMPAIRED (CI) G Code Discharge Status: SWALLOWING (G8998) Discharge Status Modifier: 1%-19% IMPAIRED (CI) If pt's [facility] benefits exhausted If patient's Medicare benefits are exhausted, please review: #Min Spent: 15 at [phone]
--- NOTE | 2016-10-13 15:14 | ST BEDSIDE DYSPHAGIA EVAL ---
SUBJECTIVE-DYSPHAGIA Date: 10/13/16 Time: 1450 Eval Type: Initial Certification - Admitted Date: 10/13/16 Primary Diagnosis: UTI, FEVER, WEAKNESS Reason for Consult: DYSPHAGIA Pt/Caregiver Concerns: GULPING WHILE SWALLOWING WATER Onset of symptoms- 10/06/16 MEDICAL HX UNKNOWN Symptoms have worsened? NO improved? NO resolved? NO since onset. Current Diet: REGULAR/THINS Allergies Coded Allergies: Cephalosporins (03/20/16) ceftriaxone (From ROCEPHIN) (03/20/16) cefuroxime (From CEFTIN) (03/20/16) nitrofurantoin (From MACROBID) (03/20/16) tetanus and diphtheria toxoids (TETANUS & DIPHTHERIA TOXOIDS) (03/20/16) tuberculin,PPD,multi-puncture (10/13/16) Home Medications Reported Medications Levetiracetam (Keppra 500 Mg Tablet) 500 MG PO BID Divalproex Sodium (Depakote) 500 MG PO TID Sitagliptin Phosphate (Sitagliptin 50MG Tablet) 100 MG PO DAILY Acetaminophen (Acetaminophen Extra Strength) 650 MG PO Q4HP PRN PAIN Zinc Gluconate (ZINC) 50 MG PO DAILY CHOLECALCIFEROL (VITAMIN D3) (Vitamin D) 1,000 IUNITS PO DAILY Levothyroxine Sodium (Synthroid 0.15MG) 0.175 MG PO DAILY Rivastigmine Tartrate (Rivastigmine) 6 MG PO BID Simvastatin (Zocor) 20 MG PO QHS Insulin Glargine (Lantus Insulin Vial) 47 UNITS SC QHS Insulin Lispro, Recombinant (Humalog 100 UNITS/ML 10ML) 0 UNITS SC ACHS Pantoprazole Sodium (Pantoprazole 40MG) 40 MG PO DAILY Amiodarone Hcl (Amiodarone 200MG) 200 MG PO DAILY Ticagrelor (Brilinta) 90 MG PO BID Amlodipine Besylate (Amlodipine) 5 MG PO DAILY Carvedilol (Coreg 25MG) 25 MG PO BID NITROGLYCERIN (Nitrostat) 0.4 MG SL [id number] PRN CHEST PAIN LISINOPRIL (Lisinopril) 20 MG PO DAILY Furosemide (Lasix) 20 MG PO DAILY Sertraline Hcl (Sertraline HCl) 25 MG PO DAILY SULFAMETHOXAZOLE W/TRIMETHOPRI (Bactrim Ds Tab) 1 TABLET PO BID Is this assessment r/t stroke? No OBJECTIVE COMMUNICATION/COGNITION Barriers to communication/cog? Yes Orientation POS: Name, Other (BIRTHDAY). NEG: Place, Day, Date, Year. Follows Commands POS: Follows 1-step commands. NEG: Follows 2-step commands. Able to remember swallow strategies? No Intelligibility Good Barriers to communication: DECREASED ORIENTATION ORAL-MOTOR STRUCTURE/FUNCTION Structure/Function WFL: Labial, Buccal, Lingual, Velar, Mandibular. Facial Asymmetry None Laryngeal Function Strong: Voluntary Cough, Throat Clearing. Vocal Quality Normal Dentition Good dentition RESPIRATORY STATUS/HISTORY Is resp status/hx a concern? Yes Requires Oxygen: Cannula Breathes from mouth? No Risk-fatigue due to comp.resp? No DYSPHAGIA SIGNS W/CONSISTENCY Any S/S of Dysphagia? No ASSESSMENT/PLAN ASSESSMENT Impression Ms. Retana, a 71 year old female, was referred for a bedside evaluation of swallowing by her physician, Rody Allen APRN. Ms. Retana's was present for evaluation and reports she had difficulty with water yesterday. He reported "she gulped water yesterday and it was different from normal". Ms. Retana was given the following consistencies: thins via straw and open cup, pudding, and regular. No signs of dysphagia were noticed. At this time, it is recommended Ms. Retana be placed on regular diet with thin liquids. Speech therapy is not recommended. PLAN RECOMMENDATIONS Further skill serv. indicated No SWALLOW GUIDELINES Standard Aspiration Prec. PATIENT/CAREGIVER MANAGER MEAT educated on Diet Consistency Rehab Medicare G Code Plan Medicare/G Code eligible? Yes Therapy Discipline Plan: AUTOMOTIVE ASSEMBLER PLAN OF CARE G Code Current Status: SWALLOWING (G8996) Current Status Modifier: 1%-19% IMPAIRED (CI) G Code Goal Status: SWALLOWING (G8997) Goal Status Modifier: 1%-19% IMPAIRED (CI) G Code Discharge Status: SWALLOWING (G8998) Discharge Status Modifier: 1%-19% IMPAIRED (CI) If pt's [employer] benefits exhausted If patient's Medicare benefits are exhausted, please review: #Min Spent: 15 at [phone]
[2016-10-13 15:56] VITALS: BP 144/70
[2016-10-13 19:37] VITALS: BP 106/59
[2016-10-13 19:58] VITALS: BP 106/59
[2016-10-14 03:51] VITALS: BP 145/67
[2016-10-14 06:48] LABS: LYMPH # 2.4 K/mm3 (0.7-4.5); LYMPH % 39.4 % (10-50.0)
[2016-10-14 08:00] VITALS: BP 112/54
[2016-10-14 08:22] VITALS: BP 112/54
--- NOTE | 2016-10-14 08:37 | ACUTE CARE PROGRESS NOTE (QUA) ---
Progress Notes Subjective Date 10/14/16 Time 0831 Note Patient admitted with UTI and AMS, is doing much better today. Awake and alert, answering questions. Patient's is at bedside. States she is doing much better. Patient complains of left hand pain and swelling. Denies difficulty breathing, O2 in place at this time. Objective Exam General appearance: alert, awake Eyes: pupils reactive to light ENT: normal exam Neck: normal inspection, non-tender Cardiovascular: regular rate & rhythm Respiratory: diminished throughout ABD: normal exam Extremities: moves all Musculoskeletal: R gas dispenser > L gas dispenser Skin: normal exam Neuro: alert, speech clear Reviewed: medications, vital signs, lab results, nursing notes Assessment/Plan Problem List 1. UTI (urinary tract infection) Qualifiers: Urinary tract infection type: acute cystitis Hematuria presence: without hematuria Qualified Code: N30.00 - Acute cystitis without hematuria 2. Generalized weakness 3. Declining functional status 4. 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 Monitor labs This inpt stay is expected to cross 2 MNs from start of care Yes at 0837
--- NOTE | 2016-10-14 08:37 | ACUTE CARE PROGRESS NOTE (QUA) ---
Progress Notes Subjective Date 10/14/16 Time 0831 Note Patient admitted with UTI and AMS, is doing much better today. Awake and alert, answering questions. Patient's is at bedside. States she is doing much better. Patient complains of left hand pain and swelling. Denies difficulty breathing, O2 in place at this time. 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 UTI (urinary tract infection) Qualifiers: Urinary tract infection type: acute cystitis Hematuria presence: without hematuria Qualified Code: N30.00 - Acute cystitis without hematuria 2. Generalized weakness 3. Declining functional status 4. 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 Monitor labs This inpt stay is expected to cross 2 MNs from start of care Yes at 0837
--- NOTE | 2016-10-14 10:59 | RADIOLOGY REPORT PS360 ---
HAND-LT-3 VIEWS HISTORY: Left hand swelling swelling ORDERING PHYSICIAN: Tristen Campbell MD PATIENT AGE: 71 years COMPARISON: None FINDINGS: No fracture or dislocation. No lytic or blastic change. There is normal mineralization. The joint spaces are well-preserved. No significant degenerative/arthritic changes. No erosive changes evident. There is generalized soft tissue swelling. No radio opaque foreign body or soft tissue gas evident. IMPRESSION: Soft tissue swelling otherwise negative
[2016-10-14 15:55] VITALS: BP 129/57
[2016-10-14 20:22] VITALS: BP 123/55
[2016-10-14 20:30] VITALS: BP 123/55
[2016-10-15 04:03] VITALS: BP 123/58
[2016-10-15 07:47] VITALS: BP 123/58
[2016-10-15 08:00] VITALS: BP 118/53
--- NOTE | 2016-10-15 08:33 | ACUTE CARE PROGRESS NOTE (QUA) ---
Progress Notes Subjective Date 10/15/16 Time 0833 Note Patient much more alert per and nursing staff. Pleasant, talkative, has eaten 90 percent of her breakfast. Anterior lung rivera are clear, abdomen is soft and nontender. No edema noted. Objective Findings Last VS-Temp:99.3 B/P:118/53 Pulse:70 Resp:20 SaO2:93 OXYGEN Last weight lbs:222 oz:4 K.811 Method:Bed Scales Assessment/Plan Problem List 1. UTI (urinary tract infection) Qualifiers: Urinary tract infection type: acute cystitis Hematuria presence: without hematuria Qualified Code: N30.00 - Acute cystitis without hematuria 2. Generalized weakness 3. Declining functional status 4. Fever Qualifiers: Fever type: malignant hyperthermia due to anesthesia Encounter type: initial encounter Qualified Code: T88.3XXA - Malignant hyperthermia due to anesthesia, initial encounter Patient condition Improving Plan: continue current care This inpt stay is expected to cross 2 MNs from start of care Yes at 0833
[2016-10-15 16:00] VITALS: BP 117/48
[2016-10-15 19:49] VITALS: BP 124/52
[2016-10-15 20:59] VITALS: BP 124/52
[2016-10-16 04:12] VITALS: BP 134/69
--- NOTE | 2016-10-16 07:33 | ACUTE CARE PROGRESS NOTE (QUA) ---
Progress Notes Subjective Date 10/16/16 Time 0731 Note reports that patient is more alert today. No vomiting. Good p.o. intake at breakfast. Patient has clear lungs, regular heart rate, neurologic changes as previously noted. Urine culture with Proteus, resistant to Levaquin. Objective Findings Last VS-Temp:97.8 B/P:134/69 Pulse:77 Resp:18 SaO2:95 OXYGEN Last weight lbs:222 oz:7 K.896 Method:Bed Scales Assessment/Plan Problem List 1. UTI (urinary tract infection) Qualifiers: Urinary tract infection type: acute cystitis Hematuria presence: without hematuria Qualified Code: N30.00 - Acute cystitis without hematuria 2. Generalized weakness 3. Declining functional status 4. Fever Qualifiers: Fever type: malignant hyperthermia due to anesthesia Encounter type: initial encounter Qualified Code: T88.3XXA - Malignant hyperthermia due to anesthesia, initial encounter Patient condition Improving Plan: make medication changes, change Levaquin to Zosyn therapy. Possible PICC line placement tomorrow. This inpt stay is expected to cross 2 MNs from start of care Yes at 0732
[2016-10-16 07:39] VITALS: BP 127/58
[2016-10-16 08:48] VITALS: BP 127/58
[2016-10-16 15:53] VITALS: BP 130/55
[2016-10-16 20:08] VITALS: BP 120/67
[2016-10-16 20:30] VITALS: BP 120/67
[2016-10-17 03:55] VITALS: BP 145/63
--- NOTE | 2016-10-17 07:59 | ACUTE CARE PROGRESS NOTE (QUA) ---
Progress Notes Subjective Date 10/17/16 Time 0759 Note Overall patient is much more alert. Talkative. Cardiopulmonary assessment unchanged, abdomen has not been bloated. She has good perfusion according to nurse's notes. Objective Findings Last VS-Temp:99.0 B/P:145/63 Pulse:71 Resp:18 SaO2:96 OXYGEN Last weight lbs:224 oz:3 K.69 Method:Bed Scales Assessment/Plan Problem List 1. UTI (urinary tract infection) Qualifiers: Urinary tract infection type: acute cystitis Hematuria presence: without hematuria Qualified Code: N30.00 - Acute cystitis without hematuria 2. Generalized weakness 3. Declining functional status 4. Fever Qualifiers: Fever type: malignant hyperthermia due to anesthesia Encounter type: initial encounter Qualified Code: T88.3XXA - Malignant hyperthermia due to anesthesia, initial encounter Patient condition Improving Plan: continue current care, Proteus UTI with sensitivity issues. Plan to change to intravenous Invanz, PICC line placement and probable transfer to intermediate this afternoon This inpt stay is expected to cross 2 MNs from start of care Yes at 0754
--- NOTE | 2016-10-17 07:59 | ACUTE CARE PROGRESS NOTE (QUA) ---
Progress Notes Subjective Date 10/17/16 Time 0759 Note Overall patient is much more alert. Talkative. Cardiopulmonary assessment unchanged, abdomen has not been bloated. She has good perfusion according to nurse's notes. Objective Findings Last VS-Temp:99.0 B/P:145/63 Pulse:71 Resp:18 SaO2:96 OXYGEN Last weight lbs:224 oz:3 K.69 Method:Bed Scales Assessment/Plan Problem List 1. UTI (urinary tract infection) Qualifiers: Urinary tract infection type: acute cystitis Hematuria presence: without hematuria Qualified Code: N30.00 - Acute cystitis without hematuria 2. Generalized weakness 3. Declining functional status 4. Fever Qualifiers: Fever type: malignant hyperthermia due to anesthesia Encounter type: initial encounter Qualified Code: T88.3XXA - Malignant hyperthermia due to anesthesia, initial encounter Patient condition Improving Plan: continue current care, Proteus UTI with sensitivity issues. Plan to change to intravenous Invanz, PICC line placement and probable transfer to senior living this afternoon This inpt stay is expected to cross 2 MNs from start of care Yes at 0755
[2016-10-17 08:35] VITALS: BP 120/45
[2016-10-17 10:41] VITALS: BP 120/45
[2016-10-17] MEDS ORDERED: INVANZ1 G1 IV (13:01)
--- NOTE | 2016-10-17 13:03 | DISCHARGE SUMMARY STANDARD ---
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 reports she typically walks a little bit, feeds herself and is able to recognize him when he visits. She has a MULTIPLE WIRE [employer]ER shunt and is followed by Dr. Connor. state she has routine CT scans, the most recent 2 weeks ago which he states was a baseline. She was started on Bactrim at the [facility] several days when her UA was found to be positive for UTI. Urine culture was sent; however it showed no growth. On presentation to the ED, she was found to be lethargic and confused. UA was positive. She was given a dose of IV Levaquin and admitted to acute care for further evaluation. On admission to the floor, she was alert and oriented to self, awake and answering simple questions. denies congestion, however reports occasional cough and difficulty swallowing this week. Hospital Course Hospital Course: Patient was admitted, placed on IV antibiotics with levofloxacin, and did well with fluid administration with improving mental status change. Labs were monitored and electrolytes adjusted appropriately. Urine culture returned showing Proteus species, however resistant to levofloxacin but sensitive to extended spectrum penicillins and ertapenem. She was placed on ertapenem 1 g daily and tolerated this well. PICC line was placed because of the need for ongoing IV therapy and this was done without complications. She will be transferred back to her [facility] with one more week of ertapenem therapy, 1 g daily, and followup with our services at the [facility]. Discharge diagnoses Problem List 1. UTI (urinary tract infection) 2. Generalized weakness 3. Declining functional status 4. Fever Medications Medications: Discharge meds are as noted. Follow up Follow up in office in: 3 DAYS with: Meme Pandey APRN at [phone]
--- NOTE | 2016-10-17 13:03 | DISCHARGE SUMMARY STANDARD ---
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 reports she typically walks a little bit, feeds herself and is able to recognize him when he visits. 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 Connor. state she has routine CT scans, the most recent 2 weeks ago which he states was a baseline. She was started on Bactrim at the half-way several days when her UA was found to be positive for UTI. Urine culture was sent; however it showed no growth. On presentation to the ED, she was found to be lethargic and confused. UA was positive. She was given a dose of IV Levaquin and admitted to acute care for further evaluation. On admission to the floor, she was alert and oriented to self, awake and answering simple questions. denies congestion, however reports occasional cough and difficulty swallowing this week. Hospital Course Hospital Course: Patient was admitted, placed on IV antibiotics with levofloxacin, and did well with fluid administration with improving mental status change. Labs were monitored and electrolytes adjusted appropriately. Urine culture returned showing Proteus species, however resistant to levofloxacin but sensitive to extended spectrum penicillins and ertapenem. She was placed on ertapenem 1 g daily and tolerated this well. PICC line was placed because of the need for ongoing IV therapy and this was done without complications. She will be transferred back to her [facility] with one more week of ertapenem therapy, 1 g daily, and followup with our services at the half-way. Discharge diagnoses Problem List 1. UTI (urinary tract infection) 2. Generalized weakness 3. Declining functional status 4. Fever Medications Medications: Discharge meds are as noted. Follow up Follow up in office in: 3 DAYS with: Meme Pandey APRN at [phone]
--- NOTE | 2016-10-17 14:17 | RADIOLOGY REPORT PS360 ---
CHEST PORTABLE-PICC PLACEMENT pCXR #2 today Ordering Physician: Tristen Campbell MD Patient Age: 71 years: Female HISTORY: PICC LINE PLACEMENT TECHNIQUE: AP portable upright chest FINDINGS The PICC line has been reinserted & this repeat second chest film of been performed to evaluate such. PICC line enters from right arm transversing subclavian with tip at the SVC. Period satisfactory repositioning of PICC line. Nurse was notified Pacemaker overlying the left chest . There is less optimal inspiration today than on previous study. Cannot exclude some scant pleural thickening or small lateral left base CP angle region towards left base. Atelectasis. Question early airspace disease at left base. The right lung is clear unremarkable. Hilar regions appear upper normal. Heart normal size. No vascular congestion V/p shunt courses over the. Right chest IMPRESSION PICC line has been reinserted. This second chest film today shows good position of PICC line. Mild bibasilar atelectasis most evident at left base. Question scant left pleural effusion with subtle blunting left CP angle today's study
[2016-10-17 14:25] VITALS: BP 120/45
--- NOTE | 2016-10-18 16:26 | RADIOLOGY REPORT PS360 ---
CHEST PORTABLE-PICC PLACEMENT Ordering Physician: Tristen Campbell MD Patient Age: 71 years: Female HISTORY: PICC LINE INSERTION TECHNIQUE: AP portable upright chest FINDINGS Enters from right arm but just after it enters the right subclavian vein crosses the ribs, the PICC line catheter it then inferiorly], directed inferiorly the lateral upper right chest. Appears to partially loop. This likely reflects the catheter entering a collateral vessel such as the internal mammary vein or similar small chest venous structure The PICC line nurse Elan that was working with this patient was notified & will reposition.. . There is a slight hazy appearance towards the left base I could not exclude some early airspace disease at left base along with a scant left pleural effusion on this study. This may require follow-up. Pacemaker overlying the left chest with atrial and ventricular leads intact. 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 IMPRESSION: PICC line enters from right but then turns inferiorly and directed downward likely into a collateral or intramammary vein as shortly after it enters the right subclavian vein.. These to be repositioned. PICC line Nurse was made aware and will reposition Slight hazy appearance of the left base question minimal airspace disease left base. Also blunting left CP angle could reflect a small left pleural effusion. If respiratory symptoms these features May benefit from follow-up.
== END 2016-10-17 14:33 | DRG 690 ==
LOC: ER 07:50 → 2ND 09:46
PROVIDERS: Emergency Medicine; Internal Medicine Adolescent Medicine
PROC: 05HD33Z Insertion of Infusion Device into Right Cephalic Vein, Percutaneous Approach (ICD-10-PCS; principal; 2016-10-17)
DX: N39.0 Urinary tract infection, site not specified (principal); E11.9 Type 2 diabetes mellitus without complications; B96.4 Proteus (mirabilis) (morganii) as the cause of diseases classified elsewhere; I10 Essential (primary) hypertension; Z86.61 Personal history of infections of the central nervous system; Z98.2 Presence of cerebrospinal fluid drainage device; Z95.0 Presence of cardiac pacemaker; Z95.5 Presence of coronary angioplasty implant and graft
CPT/HCPCS: C1751; J1335; J2543

== ENCOUNTER 2016-10-20 13:07 | Inpatient (IN) | payer MEDICARE, BC ==
[~2016-10-20] VITALS: Ht 167.6 cm; Wt 98.9 kg
[~2016-10-20 13:07] MED LIST changes: +BACTRIM DS 8001 TA1 PO; +INVANZ1 G1 IV; +LASIX20 MG PO; +SERTRALINE25 MG PO
--- NOTE | 2016-10-20 14:10 | PHARMACY CLINIC NOTE ---
Patient Demographics Patient Demographics Admission date: 10/20/16 Date: 10/20/16 Time: 1409 Allergies Coded Allergies: Cephalosporins (03/20/16) ceftriaxone (From ROCEPHIN) (03/20/16) cefuroxime (From CEFTIN) (03/20/16) nitrofurantoin (From MACROBID) (03/20/16) tetanus and diphtheria toxoids (TETANUS & DIPHTHERIA TOXOIDS) (03/20/16) tuberculin,PPD,multi-puncture (10/13/16) HEIGHT- FT: 5 IN: 6.00 VTE General Information Disclaimer The following section includes nursing documentation that has been pulled in for pharmacy review. VTE prophylaxis NQF [id number] VTE prophylaxis ordered? Yes Type of prophylaxis/treatment: RENETTA at 0616
[2016-10-20 14:43] VITALS: BP 152/64
[2016-10-20 15:03] VITALS: BP 152/64
[2016-10-20] MEDS ORDERED: ZOFRAN4 MG PO (15:28)
[2016-10-20] MEDS ORDERED: IMODIUM A-D2 M3 PO (15:29)
[2016-10-20] MEDS ORDERED: ROBITUSSIN DM S10 ML NG (15:30)
[2016-10-20 15:54] LABS: LYMPH # 1.7 K/mm3 (0.7-4.5); LYMPH % 18.3 % (10-50.0)
[2016-10-20 17:15] LABS: URINE BILIRUBIN - DIPSTICK NEGATIVE (NEG); URINE BLOOD NEGATIVE (NEG)
--- NOTE | 2016-10-20 17:58 | RADIOLOGY REPORT PS360 ---
CT CHEST W/O CONTRAST HISTORY: FEVER,RECENT UTI, COUGH ORDERING PHYSICIAN: Tristen Campbell MD PATIENT AGE: 71 years TECHNIQUE: Helical acquisition obtained following the intravenous administration of 75 mL of Isovue 370 .. Axial, sagittal, and coronal reformatted images are generated and reviewed. COMPARISON: None FINDINGS: There is a cardiac pacemaker device present.. Right upper extremity PICC line is present with the tip in the region of the SVC. No mediastinal or hilar mass is evident. No adenopathy. Patchy interstitial infiltrate is present in the left perihilar region and left upper lobe with some mild bronchial thickening. Atelectatic changes are present in the lung bases posteriorly. No effusions. No suspicious pulmonary nodules. No acute bony anomalies. IMPRESSION: 1. Left perihilar infiltrate with bronchial thickening consistent with bronchopneumonia. 2. Bibasilar atelectasis
--- NOTE | 2016-10-20 18:03 | RADIOLOGY REPORT PS360 ---
CT ABD PELVIS W/O CONTRAST CLINICAL INDICATION: ABD PAIN, VOMITING FECES ORDERING PHYSICIAN: Tristen Campbell MD PATIENT AGE: 71 years COMPARISON: 01/08/2016 TECHNIQUE: Axial images obtained with sagittal and coronal reformats. PROCEDURE: Oral Contrast: None IV Contrast: None . FINDINGS: No focal liver lesion. No radio opaque gallstones. The spleen, pancreas, and adrenal glands are unremarkable. No renal or ureteral calculi are evident. There is some minimal prominence of the right renal collecting system. This however did have a similar appearance on 01/08/2016. DESIGN TECHNICIAN shunt traverses the anterior chest and enters the abdomen in the right upper quadrant. The tip is in region of the left mid abdominal region. Unremarkable appendix. There is diverticulosis of the sigmoid colon. No evidence of diverticulitis. There is mild amount of residual feces in the rectum. No intestinal obstruction or free air. There is a moderate amount retained colonic feces. No pelvic mass or abnormal fluid collection is evident. A Hanna catheter is present. There is a small amount of gas in the urinary bladder which is collapsed. There is some increased density in the right inguinal region likely related to recent heart catheterization. IMPRESSION: 1. No definite acute intra-abdominal or pelvic pathology. 2. Constipation. 3. Mild chronic prominence of the right renal collecting system unchanged and may be due to an old obstruction. 4. Other nonacute findings as described above
[2016-10-20 18:04] LABS: URINE SQUAMOUS CELLS OCC #/hpf (0-5)
[2016-10-20 19:47] VITALS: BP 152/64
[2016-10-20 20:27] VITALS: BP 140/52
[2016-10-21 04:20] VITALS: BP 131/50
[2016-10-21 06:33] LABS: HEMOGLOBIN 10.2 g/dL (12.2-16.2); LYMPH # 1.9 K/mm3 (0.7-4.5); LYMPH % 17.5 % (10-50.0)
--- NOTE | 2016-10-21 08:00 | ACUTE CARE PROGRESS NOTE (QUA) ---
Progress Notes Subjective Date 10/21/16 Time 0758 Note Patient is more alert than on admission last night. Fever curve noted. Abdomen soft, anterior lung rivera fairly clear. Heart rate regular. No edema noted. Objective Findings Last VS-Temp:99.7 B/P:131/50 Pulse:70 Resp:18 SaO2:98 OXYGEN Last weight lbs:216 oz:8 K.204 Method:Bed Scales Assessment/Plan Problem List 1. Nosocomial pneumonia Patient condition Improving, start Zosyn and vancomycin today. Restart home medications cautiously. CT scan results reviewed with . This inpt stay is expected to cross 2 MNs from start of care Yes at 0800
--- NOTE | 2016-10-21 08:43 | RADIOLOGY REPORT PS360 ---
CHEST-AP VIEW ONLY HISTORY: cough ORDERING PHYSICIAN: Tristen Campbell MD PATIENT AGE: 71 years COMPARISON: 10/17/2016 FINDINGS: Continued mild cardiomegaly without failure. Cardiac pacemaker, right upper extremity PICC line, and BP shunt once again noted.. Atelectatic changes once again noted. Upper lobes are clear.. No acute bony abnormalities. IMPRESSION: Continued atelectatic changes with no change
[2016-10-21 08:47] VITALS: BP 131/50
[2016-10-21 09:02] VITALS: BP 125/50
--- NOTE | 2016-10-21 11:12 | CONSULT NOTE ---
Pharmacokinetic Consult Date of consult: 10/21/16 Time of consult: 1109 Referring provider: DR. MATTHEWS Reason for consult: VANCOMYCIN DOSING Allergies: Coded Allergies: Cephalosporins (03/20/16) ceftriaxone (From ROCEPHIN) (03/20/16) cefuroxime (From CEFTIN) (03/20/16) nitrofurantoin (From MACROBID) (03/20/16) tetanus and diphtheria toxoids (TETANUS & DIPHTHERIA TOXOIDS) (03/20/16) tuberculin,PPD,multi-puncture (10/13/16) Home Medications: Active Scripts Ertapenem Sodium (Invanz) 1 GM IV DAILY #7 VIAL Prov: 10/17/16 Reported Medications Levetiracetam (Keppra 500 Mg Tablet) 500 MG PO BID Divalproex Sodium (Depakote) 500 MG PO TID Sitagliptin Phosphate (Sitagliptin 50MG Tablet) 100 MG PO DAILY Acetaminophen (Acetaminophen Extra Strength) 650 MG PO Q4HP PRN PAIN ONDANSETRON HCL (Zofran 4MG Tab) 4 MG PO Q6HP PRN NAUSEA AND VOMITING Loperamide HCl (Imodium A-D) 2 MG PO QIDP PRN LOOSE STOOL Dextromethorphan-Gg (Guaifenesin Dm Syrup) 10 ML NG Q6HP PRN COUGH Zinc Gluconate (ZINC) 50 MG PO DAILY CHOLECALCIFEROL (VITAMIN D3) (Vitamin D) 1,000 IUNITS PO DAILY Levothyroxine Sodium (Synthroid 0.15MG) 0.175 MG PO DAILY Rivastigmine Tartrate (Rivastigmine) 6 MG PO BID Simvastatin (Zocor) 20 MG PO QHS Insulin Glargine (Lantus Insulin Vial) 47 UNITS SC QHS Insulin Lispro, Recombinant (Humalog 100 UNITS/ML 10ML) 0 UNITS SC ACHS Pantoprazole Sodium (Pantoprazole 40MG) 40 MG PO DAILY Amiodarone Hcl (Amiodarone 200MG) 200 MG PO DAILY Ticagrelor (Brilinta) 90 MG PO BID Amlodipine Besylate (Amlodipine) 5 MG PO DAILY Carvedilol (Coreg 25MG) 25 MG PO BID NITROGLYCERIN (Nitrostat) 0.4 MG SL [id number] PRN CHEST PAIN LISINOPRIL (Lisinopril) 20 MG PO DAILY Furosemide (Lasix) 20 MG PO DAILY Sertraline Hcl (Sertraline HCl) 25 MG PO DAILY Discontinued Reported Medications SULFAMETHOXAZOLE W/TRIMETHOPRI (Bactrim Ds Tab) 1 TABLET PO BID Height (feet): 5 Height (inches): 6.00 Medical History: CAD? Yes Angina: No NM: No Hypertension? Yes Hyperlipidemia? No CHF? No DVT? No PE? No COPD? No Asthma? No Anemia? No GERD? Yes Gastric ulcers? No GI Bleed? No Hernia? No Thyroid Problems? No Hypothyroidism? Yes CVA? Yes Seizures? Yes Diabetes? Yes Insulin Dependent: No Insulin Pump: No Home FSBS? Yes Renal Insuffiency? Yes UTI? Yes Stones? No BPH? No GB Disease: No Nephritic Syndrome? No Asplenia? No Hepatitis? No Sickle Cell Disease? No Arthritis? Yes Migraines? Yes Cataracts? No Glaucoma? No MRSA? No HIV? No TB? No Anxiety? Yes Depression? Yes Cancer? Yes Site: SKIN More? Yes Additional hx: HX OF BACTERIAL MENGIGITIS, AFIB Labs: Laboratory Tests 10/21/16 0606: POC Glucose 170 H 10/21/16 0600: Sodium 138, Potassium 4.4, Chloride 100, Carbon Dioxide 32, BUN 30 H, Creatinine 1.5 H, Estimated Creat Clear 52, Estimated GFR (MDRD) 34 L, Glucose 186 H, Calcium 9.4, WBC 10.7, RBC 3.47 L, Hgb 10.2 L, Hct 32.1 L, MCV 92.4, RDW 15.6, Plt Count 246, MPV 6.1 L, Gran % 72.3, Gran # 7.7, Lymphocytes % 17.5 , Monocytes % 9.2, Eosinophils % 0.6, Basophils % 0.4, Lymphocytes # 1.9, Monocytes # 1.0, Eosinophils # 0.1, Basophils # 0.0, PUBS MCHC 31.9, MCH 29.5 10/20/16 1813: POC Glucose 172 H 10/20/16 1545: Sodium 140, Potassium 4.3, Chloride 100, Carbon Dioxide 33 H, BUN 30 H, Creatinine 1.7 H, Estimated Creat Clear 46 L, Estimated GFR (MDRD) 29 L, Glucose 153 H, Calcium 9.2, Total Bilirubin 0.5, AST 45 H, ALT 64, Alkaline Phosphatase 102, Total Protein 7.9, Albumin 2.5 L, Globulin 5.4 H, Albumin/ Globulin Ratio 0.5 L, WBC 9.5, RBC 3.62 L, Hgb 11.0 L, Hct 33.4 L, MCV 92.4, RDW 15.6, Plt Count 219, MPV 6.2 L, Gran % 70.2, Gran # 6.6, Lymphocytes % 18.3 , Monocytes % 10.1 H, Eosinophils % 0.8, Basophils % 0.6, Lymphocytes # 1.7, Monocytes # 1.0, Eosinophils # 0.1, Basophils # 0.1, PUBS MCHC 32.8, MCH 30.3 10/20/16 1515: Urine Color YELLOW, Urine Appearance CLEAR, Urine pH 6.5, Ur Specific [place] 1.015, Urine Protein NEGATIVE, Urine Ketones NEGATIVE, Urine Blood NEGATIVE, Urine Nitrate NEGATIVE, Urine Bilirubin NEGATIVE, Urine Urobilinogen 1.0, Ur Leukocyte Esterase NEGATIVE, Urine WBC OCC, Ur Squamous Epith Cells OCC, Urine Bacteria 1+, Urine Glucose NEGATIVE Microbiology 10/20 2199 BLOOD: Anaerobic Blood Culture - RECD 10/20 220 BLOOD: Aerobic Blood Culture - RECD 10/20 1800 BLOOD: Anaerobic Blood Culture - RECD 10/20 1800 BLOOD: Aerobic Blood Culture - RECD 10/20 1515 URINE CATH: Urine Culture - RES Problem List: 1. Nosocomial pneumonia Plan: BASED ON PATIENT FACTORS, RECOMMEND VANCOMYCIN 1500 MG IV Q24H. WILL OBTAIN VANCOMYCIN TROUGH LEVELS AND WILL ADJUST APPROPRIATE. at 1111
--- NOTE | 2016-10-21 13:30 | ST BEDSIDE DYSPHAGIA EVAL ---
SUBJECTIVE-DYSPHAGIA Date: 10/21/16 Time: 1300 Eval Type: Initial Certification - Admitted Date: 10/20/16 Primary Diagnosis: FEVER Reason for Consult: Dysphagia Pt/Caregiver Concerns: reports she chokes sometimes. Onset of symptoms- Symptoms have worsened? no improved? no resolved? no since onset. Current Diet: Mechanical soft, chopped meats thin liquids Allergies Coded Allergies: Cephalosporins (03/20/16) ceftriaxone (From ROCEPHIN) (03/20/16) cefuroxime (From CEFTIN) (03/20/16) nitrofurantoin (From MACROBID) (03/20/16) tetanus and diphtheria toxoids (TETANUS & DIPHTHERIA TOXOIDS) (03/20/16) tuberculin,PPD,multi-puncture (10/13/16) Home Medications Active Scripts Ertapenem Sodium (Invanz) 1 GM IV DAILY #7 VIAL Prov: 10/17/16 Reported Medications Levetiracetam (Keppra 500 Mg Tablet) 500 MG PO BID Divalproex Sodium (Depakote) 500 MG PO TID Sitagliptin Phosphate (Sitagliptin 50MG Tablet) 100 MG PO DAILY Acetaminophen (Acetaminophen Extra Strength) 650 MG PO Q4HP PRN PAIN ONDANSETRON HCL (Zofran 4MG Tab) 4 MG PO Q6HP PRN NAUSEA AND VOMITING Loperamide HCl (Imodium A-D) 2 MG PO QIDP PRN LOOSE STOOL Dextromethorphan-Gg (Guaifenesin Dm Syrup) 10 ML NG Q6HP PRN COUGH Zinc Gluconate (ZINC) 50 MG PO DAILY CHOLECALCIFEROL (VITAMIN D3) (Vitamin D) 1,000 IUNITS PO DAILY Levothyroxine Sodium (Synthroid 0.15MG) 0.175 MG PO DAILY Rivastigmine Tartrate (Rivastigmine) 6 MG PO BID Simvastatin (Zocor) 20 MG PO QHS Insulin Glargine (Lantus Insulin Vial) 47 UNITS SC QHS Insulin Lispro, Recombinant (Humalog 100 UNITS/ML 10ML) 0 UNITS SC ACHS Pantoprazole Sodium (Pantoprazole 40MG) 40 MG PO DAILY Amiodarone Hcl (Amiodarone 200MG) 200 MG PO DAILY Ticagrelor (Brilinta) 90 MG PO BID Amlodipine Besylate (Amlodipine) 5 MG PO DAILY Carvedilol (Coreg 25MG) 25 MG PO BID NITROGLYCERIN (Nitrostat) 0.4 MG SL [id number] PRN CHEST PAIN LISINOPRIL (Lisinopril) 20 MG PO DAILY Furosemide (Lasix) 20 MG PO DAILY Sertraline Hcl (Sertraline HCl) 25 MG PO DAILY Discontinued Reported Medications SULFAMETHOXAZOLE W/TRIMETHOPRI (Bactrim Ds Tab) 1 TABLET PO BID Is this assessment r/t stroke? No OBJECTIVE COMMUNICATION/COGNITION Barriers to communication/cog? Yes Orientation POS: Name, Place. Follows Commands POS: Follows 1-step commands. NEG: Follows 2-step commands. Able to remember swallow strategies? No Intelligibility Fair ORAL-MOTOR STRUCTURE/FUNCTION Structure/Function WFL: Labial, Buccal, Lingual, Velar, Mandibular. Facial Asymmetry None Laryngeal Function Strong: Voluntary Cough, Throat Clearing. Vocal Quality Normal, quiet Dentition Good dentition RESPIRATORY STATUS/HISTORY Is resp status/hx a concern? Yes Requires Oxygen: Cannula Breathes from mouth? Yes Risk-fatigue due to comp.resp? Yes DYSPHAGIA SIGNS W/CONSISTENCY Any S/S of Dysphagia? No ASSESSMENT/PLAN ASSESSMENT Impression Ms. Retana, a 71 year old female, was referred for a clinical evaluation of swallowing by her physician, Dr. Campbell. Ms. Retana's reports she occasionaly will "choke" on food during meals. Ms. Retana was very tired today and difficult to awaken. She did however alert to her name, respond to commands and was able to participate in the evaluation. Ms. Retana was upright at 90 degrees in her bed. Consistencies provided for assessment were, thin with straw and from cup, puree, mechnaical soft and pudding thick. No clinical signs or symptoms of aspiration were observed. She was able to use a straw better than cup drink. Diet recommendation: Mechanical soft with chopped meats with thin liquids. Speech therapy is not recommended at this time. Please feel free to consult speech therapy again if problems persist. Thank you for this referral. PLAN RECOMMENDATIONS Further skill serv. indicated No SWALLOW GUIDELINES Standard Aspiration Prec. PATIENT/CAREGIVER EDUCATION Able-recall/restate what told? No Pt unable to ind. understands due to mental status Reinforcement needed? Yes RN educated on Diet Consistency, Swallow Guidelines Rehab Medicare G Code Plan Medicare/G Code eligible? 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
[2016-10-21 16:26] VITALS: BP 139/70
[2016-10-21 20:19] VITALS: BP 126/73
[2016-10-21 20:39] VITALS: BP 126/73
[2016-10-22 05:04] VITALS: BP 128/55
[2016-10-22 07:06] LABS: HEMOGLOBIN 10.1 g/dL (12.2-16.2); LYMPH # 1.6 K/mm3 (0.7-4.5); LYMPH % 17.3 % (10-50.0)
--- NOTE | 2016-10-22 07:58 | ACUTE CARE PROGRESS NOTE (QUA) ---
Progress Notes Subjective Date 10/22/16 Time 0756 Note Overall patient is doing much better. Her fever curve has improved. I reviewed speech therapy information from yesterday, her dietary habits have improved. Other than some swelling in her hands her is very pleased with her progress. Anterior lung rivera have better air movement, heart rate regular. Abdomen soft and nontender. Extremities are warm and well-perfused. Bilateral hands are slightly puffy but this seems to be positional. Objective Findings Last VS-Temp:97.6 B/P:128/55 Pulse:70 Resp:16 SaO2:96 OXYGEN Last weight lbs:216 oz:8 K.204 Method:Bed Scales Assessment/Plan Problem List 1. Nosocomial pneumonia Patient condition Improving, Stable Plan: continue current care, continue current IV therapy. Plan to transition back to assisted early next week. This inpt stay is expected to cross 2 MNs from start of care Yes at 075
--- NOTE | 2016-10-22 07:58 | ACUTE CARE PROGRESS NOTE (QUA) ---
Progress Notes Subjective Date 10/22/16 Time 0756 Note Overall patient is doing much better. Her fever curve has improved. I reviewed speech therapy information from yesterday, her dietary habits have improved. Other than some swelling in her hands her is very pleased with her progress. Anterior lung rivera have better air movement, heart rate regular. Abdomen soft and nontender. Extremities are warm and well-perfused. Bilateral hands are slightly puffy but this seems to be positional. Objective Findings Last VS-Temp:97.6 B/P:128/55 Pulse:70 Resp:16 SaO2:96 OXYGEN Last weight lbs:216 oz:8 K.204 Method:Bed Scales Assessment/Plan Problem List 1. Nosocomial pneumonia Patient condition Improving, Stable Plan: continue current care, continue current IV therapy. Plan to transition back to care home early next week. This inpt stay is expected to cross 2 MNs from start of care Yes at 0758
[2016-10-22 08:00] VITALS: BP 142/58
[2016-10-22 08:42] VITALS: BP 128/55
[2016-10-22 16:00] VITALS: BP 110/54
[2016-10-22 19:20] VITALS: BP 134/65
[2016-10-23 05:02] VITALS: BP 147/63
--- NOTE | 2016-10-23 07:06 | ACUTE CARE PROGRESS NOTE (QUA) ---
Progress Notes Admission Date: 10/20/16 Antimicrobial stewardship: If this patient was administered antibiotics in the last 48 hours please complete the antimicrobial stewardship section of this template. Subjective Date 10/23/16 Time 0704 Note Patient has no complaints. She feels like she rested well during the day yesterday. Her appetite was good yesterday. Patient had mild elevations in her temperature to just above 99. She is laying comfortably in bed. She is in no distress. Lungs have good air entry. Heart has a regular rate and rhythm. Abdomen is obese and soft. Continue treatment for no skull meal pneumonia. I did speak with the about the patient's level of activity. He states she was able sit up in a chair up until about 2 weeks ago. We will attempt to get her out of bed to chair at her request today. Objective Findings Last VS-Temp:98.1 B/P:147/63 Pulse:69 Resp:18 SaO2:95 OXYGEN Last weight lbs:216 oz:8 K.204 Method:Bed Scales Laboratory Tests 10/23/16 0610: POC Glucose 189 H 10/22/16 2037: POC Glucose 217 H 10/22/16 1708: POC Glucose 200 H 10/22/16 1131: POC Glucose 208 H Assessment/Plan Problem List 1. Nosocomial pneumonia Patient condition Stable Plan: continue current care This inpt stay is expected to cross 2 MNs from start of care Yes Antibiotic Stewardship (2) Current Culture Results Microbiology 10/20 2199 BLOOD: Anaerobic Blood Culture - RECD 10/20 220 BLOOD: Aerobic Blood Culture - RECD 10/20 1515 URINE CATH: Urine Culture - COMP Infxn that will respond? Yes Right drug,dose,and route? Yes More targeted antbx? Yes How long atbx needed? 7 at 0707
[2016-10-23 08:00] VITALS: BP 138/54
--- NOTE | 2016-10-23 10:10 | CONSULT NOTE ---
Pharmacokinetic Consult Date of consult: 10/23/16 Time of consult: 1007 Referring provider: DR. MATTHEWS Reason for consult: VANCOMYCIN LEVEL Allergies: Coded Allergies: Cephalosporins (03/20/16) ceftriaxone (From ROCEPHIN) (03/20/16) cefuroxime (From CEFTIN) (03/20/16) nitrofurantoin (From MACROBID) (03/20/16) tetanus and diphtheria toxoids (TETANUS & DIPHTHERIA TOXOIDS) (03/20/16) tuberculin,PPD,multi-puncture (10/13/16) Home Medications: Active Scripts Ertapenem Sodium (Invanz) 1 GM IV DAILY #7 VIAL Prov: 10/17/16 Reported Medications Levetiracetam (Keppra 500 Mg Tablet) 500 MG PO BID Divalproex Sodium (Depakote) 500 MG PO TID Sitagliptin Phosphate (Sitagliptin 50MG Tablet) 100 MG PO DAILY Acetaminophen (Acetaminophen Extra Strength) 650 MG PO Q4HP PRN PAIN ONDANSETRON HCL (Zofran 4MG Tab) 4 MG PO Q6HP PRN NAUSEA AND VOMITING Loperamide HCl (Imodium A-D) 2 MG PO QIDP PRN LOOSE STOOL Dextromethorphan-Gg (Guaifenesin Dm Syrup) 10 ML NG Q6HP PRN COUGH Zinc Gluconate (ZINC) 50 MG PO DAILY CHOLECALCIFEROL (VITAMIN D3) (Vitamin D) 1,000 IUNITS PO DAILY Levothyroxine Sodium (Synthroid 0.15MG) 0.175 MG PO DAILY Rivastigmine Tartrate (Rivastigmine) 6 MG PO BID Simvastatin (Zocor) 20 MG PO QHS Insulin Glargine (Lantus Insulin Vial) 47 UNITS SC QHS Insulin Lispro, Recombinant (Humalog 100 UNITS/ML 10ML) 0 UNITS SC ACHS Pantoprazole Sodium (Pantoprazole 40MG) 40 MG PO DAILY Amiodarone Hcl (Amiodarone 200MG) 200 MG PO DAILY Ticagrelor (Brilinta) 90 MG PO BID Amlodipine Besylate (Amlodipine) 5 MG PO DAILY Carvedilol (Coreg 25MG) 25 MG PO BID NITROGLYCERIN (Nitrostat) 0.4 MG SL [id number] PRN CHEST PAIN LISINOPRIL (Lisinopril) 20 MG PO DAILY Furosemide (Lasix) 20 MG PO DAILY Sertraline Hcl (Sertraline HCl) 25 MG PO DAILY Discontinued Reported Medications SULFAMETHOXAZOLE W/TRIMETHOPRI (Bactrim Ds Tab) 1 TABLET PO BID Height (feet): 5 Height (inches): 6.00 Medical History: CAD? Yes Angina: No [place]: No Hypertension? Yes Hyperlipidemia? No CHF? No DVT? No PE? No COPD? No Asthma? No Anemia? No GERD? Yes Gastric ulcers? No GI Bleed? No Hernia? No Thyroid Problems? No Hypothyroidism? Yes CVA? Yes Seizures? Yes Diabetes? Yes Insulin Dependent: No Insulin Pump: No Home FSBS? Yes Renal Insuffiency? Yes UTI? Yes Stones? No BPH? No GB Disease: No Nephritic Syndrome? No Asplenia? No Hepatitis? No Sickle Cell Disease? No Arthritis? Yes Migraines? Yes Cataracts? No Glaucoma? No MRSA? No HIV? No TB? No Anxiety? Yes Depression? Yes Cancer? Yes Site: SKIN More? Yes Additional hx: HX OF BACTERIAL MENGIGITIS, AFIB Labs: Laboratory Tests 10/23/16 0835: Vancomycin Trough 12.5 10/23/16 0610: POC Glucose 189 H 10/22/16 2037: POC Glucose 217 H 10/22/16 1708: POC Glucose 200 H 10/22/16 1131: POC Glucose 208 H Problem List: 1. Nosocomial pneumonia Plan: BASED ON PATIENT'S VANCOMYCIN TROUGH LEVEL OF 12.5 MCG/ML, RECOMMEND PATIENT CONTINUE WITH THE CURRENT DOSE OF VANCOMYCIN 1500 MG Q24H AT THIS TIME. PHARMACY WILL FOLLOW DAILY AND ADJUST APPROPRIATE. NICOLE RAMIREZ PHARMD at [phone]
[2016-10-23 15:53] VITALS: BP 137/67
[2016-10-23 19:32] VITALS: BP 135/84
[2016-10-23 21:15] VITALS: BP 135/84
[2016-10-24 04:58] VITALS: BP 120/65
[2016-10-24 08:00] VITALS: BP 146/68
--- NOTE | 2016-10-24 08:35 | ACUTE CARE PROGRESS NOTE (QUA) ---
Progress Notes Subjective Date 10/24/16 Time 0834 Note Overall patient feels better, alert, talkative, a good breakfast. Lungs are clear the anterior rivera, abdomen soft, neurologic exam stable. Objective Findings Last VS-Temp:99.6 B/P:146/68 Pulse:70 Resp:20 SaO2:91 ROOM AIR Last weight lbs:216 oz:8 K.204 Method:Bed Scales Assessment/Plan Problem List 1. Nosocomial pneumonia Patient condition Improving Plan: continue current care, make care level transfer This inpt stay is expected to cross 2 MNs from start of care Yes Antibiotic Stewardship (2) Infxn that will respond? Yes Right drug,dose,and route? Yes More targeted antbx? Yes at 0835
--- NOTE | 2016-10-24 08:43 | DISCHARGE SUMMARY STANDARD ---
Demographics Admit date: 10/20/16 Discharge date: 10/24/16 History of present illness History of present illness 71-year-old admitted [facility] with recurrent fevers after being treated here for urinary tract infection. Admission CT scan showed nosocomial acquired pneumonia, admitted for broad- spectrum metabolic. Please see scanned H&P in chart from [facility]. Hospital Course Hospital Course: Patient was admitted, placed on vancomycin and Zosyn, defervesced, white count improved very nicely. Patient was continued on regular medications including vancomycin and Zosyn. PICC line is found to be functioning very nicely. She did well over the next couple of days, but cultures were negative, repeat urine cultures negative, this morning she is back to her baseline and she transferred back to [facility] for 10 more days of vancomycin and Zosyn therapy in addition to her regular medications. Discharge diagnoses Problem List 1. Nosocomial pneumonia Medications Medications: Discharge meds are as noted. Follow up Follow up in office in: 4 DAYS with: Meme Pandey APRN at 0842
--- NOTE | 2016-10-24 08:43 | DISCHARGE SUMMARY STANDARD ---
Demographics Admit date: 10/20/16 Discharge date: 10/24/16 History of present illness History of present illness 71-year-old admitted from shelter with recurrent fevers after being treated here for urinary tract infection. Admission CT scan showed nosocomial acquired pneumonia, admitted for broad- spectrum metabolic. Please see scanned H&P in chart from shelter. Hospital Course Hospital Course: Patient was admitted, placed on vancomycin and Zosyn, defervesced, white count improved very nicely. Patient was continued on regular medications including vancomycin and Zosyn. PICC line is found to be functioning very nicely. She did well over the next couple of days, but cultures were negative, repeat urine cultures negative, this morning she is back to her baseline and she transferred back to shelter for 10 more days of vancomycin and Zosyn therapy in addition to her regular medications. Discharge diagnoses Problem List 1. Nosocomial pneumonia Medications Medications: Discharge meds are as noted. Follow up Follow up in office in: 4 DAYS with: Meme Pandey APRN at 0842
[2016-10-24] MEDS ORDERED: VANCOMYCIN1.5 GM/252 IV (08:44)
[2016-10-24] MEDS ORDERED: NOVAPLUS ZOSYN50 ML IV (08:45)
[2016-10-24 10:28] VITALS: BP 146/68
== END 2016-10-24 09:50 | DRG 195 ==
LOC: 2ND 13:07
PROVIDERS: Internal Medicine Adolescent Medicine
DX: J18.9 Pneumonia, unspecified organism (principal); E11.9 Type 2 diabetes mellitus without complications; I10 Essential (primary) hypertension; Y95 Nosocomial condition; Z98.2 Presence of cerebrospinal fluid drainage device; Z95.0 Presence of cardiac pacemaker; Z95.5 Presence of coronary angioplasty implant and graft; Z86.61 Personal history of infections of the central nervous system
CPT/HCPCS: J2543; J3370

== ENCOUNTER → 2016-11-14 | Outpatient (CLI) | payer MEDICARE, BC, MEDICAID ==
[~2016-11-14] MED LIST changes: +IMODIUM A-D2 M3 PO; +NOVAPLUS ZOSYN50 ML IV; +ROBITUSSIN DM S10 ML NG; +VANCOMYCIN1.5 GM/252 IV
--- NOTE | 2016-11-14 14:27 | ST MODIFIED BARIUM SWALLOW ---
SUBJECTIVE-DYSPHAGIA Date: 11/14/16 Time: 1300 Eval Type: Initial Certification - Admitted Date: Primary Diagnosis: Reason for Consult: DYSPHAGIA Pt/Caregiver Concerns: RECURRENT PNEUMONIA Onset of symptoms- Symptoms have worsened? YES improved? NO resolved? NO since onset. Current Diet: PUREED/THINS Allergies Coded Allergies: Cephalosporins (03/20/16) ceftriaxone (From ROCEPHIN) (03/20/16) cefuroxime (From CEFTIN) (03/20/16) nitrofurantoin (From MACROBID) (03/20/16) tetanus and diphtheria toxoids (TETANUS & DIPHTHERIA TOXOIDS) (03/20/16) tuberculin,PPD,multi-puncture (10/13/16) Home Medications Active Scripts Vancomycin HCl/D5w (Vancomycin 1.5 Gram/250 Ml-D5w) 1.5 GM IV Q24 10 Days Prov: 10/24/16 [id number] (Zosyn 3.375 Gm/50 Ml Galaxy) 3.375 gm IV Q8 10 Days Prov: 10/24/16 Reported Medications Levetiracetam (Keppra 500 Mg Tablet) 500 MG PO BID Divalproex Sodium (Depakote) 500 MG PO TID Sitagliptin Phosphate (Sitagliptin 50MG Tablet) 100 MG PO DAILY Acetaminophen (Acetaminophen Extra Strength) 650 MG PO Q4HP PRN PAIN ONDANSETRON HCL (Zofran 4MG Tab) 4 MG PO Q6HP PRN NAUSEA AND VOMITING Loperamide HCl (Imodium A-D) 2 MG PO QIDP PRN LOOSE STOOL Dextromethorphan-Gg (Guaifenesin Dm Syrup) 10 ML NG Q6HP PRN COUGH Zinc Gluconate (ZINC) 50 MG PO DAILY CHOLECALCIFEROL (VITAMIN D3) (Vitamin D) 1,000 IUNITS PO DAILY Levothyroxine Sodium (Synthroid 0.15MG) 0.175 MG PO DAILY Rivastigmine Tartrate (Rivastigmine) 6 MG PO BID Simvastatin (Zocor) 20 MG PO QHS Insulin Glargine (Lantus Insulin Vial) 47 UNITS SC QHS Insulin Lispro, Recombinant (Humalog 100 UNITS/ML 10ML) 0 UNITS SC ACHS Pantoprazole Sodium (Pantoprazole 40MG) 40 MG PO DAILY Amiodarone Hcl (Amiodarone 200MG) 200 MG PO DAILY Ticagrelor (Brilinta) 90 MG PO BID Amlodipine Besylate (Amlodipine) 5 MG PO DAILY Carvedilol (Coreg 25MG) 25 MG PO BID NITROGLYCERIN (Nitrostat) 0.4 MG SL [id number] PRN CHEST PAIN LISINOPRIL (Lisinopril) 20 MG PO DAILY Furosemide (Lasix) 20 MG PO DAILY Sertraline Hcl (Sertraline HCl) 25 MG PO DAILY Is this assessment r/t stroke? Yes Pt assessed for rehab svc: ADL Assessment OBJECTIVE COMMUNICATION/COGNITION Barriers to communication/cog? Yes Orientation POS: Name. NEG: Place, Day, Date, Year, Other. Follows Commands NEG: Follows 1-step commands, Follows 2-step commands. Able to remember swallow strategies? No Intelligibility Poor Barriers to communication: DECREASED ORIENTATION, DECREASED ABILITY TO FOLLOW DIRECTIONS ORAL-MOTOR STRUCTURE/FUNCTION Structure/Function WFL: Labial, Buccal, Lingual, Velar, Mandibular. Facial Asymmetry None Laryngeal Function Could not check: Voluntary Cough, Throat Clearing. Vocal Quality Normal Dentition Good dentition RESPIRATORY STATUS/HISTORY Is resp status/hx a concern? Yes Requires Oxygen: Cannula Breathes from mouth? No Risk-fatigue due to comp.resp? Yes DYSPHAGIA SIGNS W/CONSISTENCY Any S/S of Dysphagia? Yes VIDEO SWALLOW REPORT Radiologist: Antonio MILLER,Meet Conner Level of consciousness: Alert Position (degrees): 90 ORAL STAGE Consistencies used for study: Thin, Pudding, Pureed Comments: BOLUS FORMATION: WFL WITH THINS VIA STRAW AND PUREED; IMPAIRED WITH PUDDING INITIATION OF SWALLOW: WFL WITH THINS VIA STRAW AND PUREED; IMPAIRED WITH PUDDING PREMATURE SPILLAGE INTO PHARYNX: NO ORAL RESIDUE: YES WITH PUDDING *PATIENT REFUSED TO SWALLOW PUDDING CONSISTENCY. PHARYNGEAL STAGE Consistencies used for study: Thin, Pudding, Pureed Delayed Swallow Reflex? No Epiglottic Closure WFL Penetration-Laryngeal Vestibul No - Aspiration? No Pharyngeal Residue? No ASSESSMENT/PLAN ASSESSMENT Impression Ms. Retana, a 71 year old female, was referred for a modified barium swallow. It is a concern that Ms. Retana has suffered a CVA resulting in dysphagia. Ms. Retana's current diet is pureed/thin liquids at the [facility] where [facility]. Ms. Retana was given the following consistencies: thins via straw, pudding, and pureed. The following signs of dysphagia were noted: impaired bolus formation with pudding consistency. Ms. Retana was provided pressure from spoon to provide oral sensitivity input. Ms. Retana held pudding bolus for extended amount of time with no posterior movement to aid in swallowing. Ms. Retana was given thin liquids via straw which aided in swallow. Subsequent swallow of pudding consistency, she did not swallow. She controlled the bolus until she was able to spit it out. At this time, it is recommended that Ms. Retana remain on pureed diet with thin liquids. Medications should be crushed in applesauce. ST at [facility] to determine therapy. PLAN RECOMMENDATIONS Diet: Pureed/thin SWALLOW GUIDELINES Standard Aspiration Prec., Alt Bite w/Sip Thru Meal, Crush Meds as Allowed, Assist w/All Meals Rehab Medicare G Code Plan Medicare/G Code eligible? Yes Therapy Discipline Plan: SUPERINTENDENT SANITATION PLAN OF CARE G Code Current Status: SWALLOWING (G8996) Current Status Modifier: 40%-59% IMPAIRED (CK) G Code Goal Status: SWALLOWING (G8997) Goal Status Modifier: 40%-59% IMPAIRED (CK) G Code Discharge Status: SWALLOWING (G8998) Discharge Status Modifier: 40%-59% IMPAIRED (CK) If pt's [facility] benefits exhausted If patient's Medicare benefits are exhausted, please review: #Min Spent: 35 at 1427
--- NOTE | 2016-11-14 14:27 | ST MODIFIED BARIUM SWALLOW ---
SUBJECTIVE-DYSPHAGIA Date: 11/14/16 Time: 1300 Eval Type: Initial Certification - Admitted Date: Primary Diagnosis: Reason for Consult: DYSPHAGIA Pt/Caregiver Concerns: RECURRENT PNEUMONIA Onset of symptoms- Symptoms have worsened? YES improved? NO resolved? NO since onset. Current Diet: PUREED/THINS Allergies Coded Allergies: Cephalosporins (03/20/16) ceftriaxone (From ROCEPHIN) (03/20/16) cefuroxime (From CEFTIN) (03/20/16) nitrofurantoin (From MACROBID) (03/20/16) tetanus and diphtheria toxoids (TETANUS & DIPHTHERIA TOXOIDS) (03/20/16) tuberculin,PPD,multi-puncture (10/13/16) Home Medications Active Scripts Vancomycin HCl/D5w (Vancomycin 1.5 Gram/250 Ml-D5w) 1.5 GM IV Q24 10 Days Prov: 10/24/16 [id number],ISO (Zosyn 3.375 Gm/50 Ml Galaxy) 3.375 gm IV Q8 10 Days Prov: 10/24/16 Reported Medications Levetiracetam (Keppra 500 Mg Tablet) 500 MG PO BID Divalproex Sodium (Depakote) 500 MG PO TID Sitagliptin Phosphate (Sitagliptin 50MG Tablet) 100 MG PO DAILY Acetaminophen (Acetaminophen Extra Strength) 650 MG PO Q4HP PRN PAIN ONDANSETRON HCL (Zofran 4MG Tab) 4 MG PO Q6HP PRN NAUSEA AND VOMITING Loperamide HCl (Imodium A-D) 2 MG PO QIDP PRN LOOSE STOOL Dextromethorphan-Gg (Guaifenesin Dm Syrup) 10 ML NG Q6HP PRN COUGH Zinc Gluconate (ZINC) 50 MG PO DAILY CHOLECALCIFEROL (VITAMIN D3) (Vitamin D) 1,000 IUNITS PO DAILY Levothyroxine Sodium (Synthroid 0.15MG) 0.175 MG PO DAILY Rivastigmine Tartrate (Rivastigmine) 6 MG PO BID Simvastatin (Zocor) 20 MG PO QHS Insulin Glargine (Lantus Insulin Vial) 47 UNITS SC QHS Insulin Lispro, Recombinant (Humalog 100 UNITS/ML 10ML) 0 UNITS SC ACHS Pantoprazole Sodium (Pantoprazole 40MG) 40 MG PO DAILY Amiodarone Hcl (Amiodarone 200MG) 200 MG PO DAILY Ticagrelor (Brilinta) 90 MG PO BID Amlodipine Besylate (Amlodipine) 5 MG PO DAILY Carvedilol (Coreg 25MG) 25 MG PO BID NITROGLYCERIN (Nitrostat) 0.4 MG SL [id number] PRN CHEST PAIN LISINOPRIL (Lisinopril) 20 MG PO DAILY Furosemide (Lasix) 20 MG PO DAILY Sertraline Hcl (Sertraline HCl) 25 MG PO DAILY Is this assessment r/t stroke? Yes Pt assessed for rehab svc: ADL Assessment OBJECTIVE COMMUNICATION/COGNITION Barriers to communication/cog? Yes Orientation POS: Name. NEG: Place, Day, Date, Year, Other. Follows Commands NEG: Follows 1-step commands, Follows 2-step commands. Able to remember swallow strategies? No Intelligibility Poor Barriers to communication: DECREASED ORIENTATION, DECREASED ABILITY TO FOLLOW DIRECTIONS ORAL-MOTOR STRUCTURE/FUNCTION Structure/Function WFL: Labial, Buccal, Lingual, Velar, Mandibular. Facial Asymmetry None Laryngeal Function Could not check: Voluntary Cough, Throat Clearing. Vocal Quality Normal Dentition Good dentition RESPIRATORY STATUS/HISTORY Is resp status/hx a concern? Yes Requires Oxygen: Cannula Breathes from mouth? No Risk-fatigue due to comp.resp? Yes DYSPHAGIA SIGNS W/CONSISTENCY Any S/S of Dysphagia? Yes VIDEO SWALLOW REPORT Radiologist: Antonio MILLER,Meet Conner Level of consciousness: Alert Position (degrees): 90 ORAL STAGE Consistencies used for study: Thin, Pudding, Pureed Comments: BOLUS FORMATION: WFL WITH THINS VIA STRAW AND PUREED; IMPAIRED WITH PUDDING INITIATION OF SWALLOW: WFL WITH THINS VIA STRAW AND PUREED; IMPAIRED WITH PUDDING PREMATURE SPILLAGE INTO PHARYNX: NO ORAL RESIDUE: YES WITH PUDDING *PATIENT REFUSED TO SWALLOW PUDDING CONSISTENCY. PHARYNGEAL STAGE Consistencies used for study: Thin, Pudding, Pureed Delayed Swallow Reflex? No Epiglottic Closure WFL Penetration-Laryngeal Vestibul No - Aspiration? No Pharyngeal Residue? No ASSESSMENT/PLAN ASSESSMENT Impression Ms. Retana, a 71 year old female, was referred for a modified barium swallow. It is a concern that Ms. Retana has suffered a CVA resulting in dysphagia. Ms. Retana's current diet is pureed/thin liquids at the [facility]. Ms. Retana was given the following consistencies: thins via straw, pudding, and pureed. The following signs of dysphagia were noted: impaired bolus formation with pudding consistency. Ms. Retana was provided pressure from spoon to provide oral sensitivity input. Ms. Retana held pudding bolus for extended amount of time with no posterior movement to aid in swallowing. Ms. Retana was given thin liquids via straw which aided in swallow. Subsequent swallow of pudding consistency, she did not swallow. She controlled the bolus until she was able to spit it out. At this time, it is recommended that Ms. Retana remain on pureed diet with thin liquids. Medications should be crushed in applesauce. ST at [facility] to determine therapy. PLAN RECOMMENDATIONS Diet: Pureed/thin SWALLOW GUIDELINES Standard Aspiration Prec., Alt Bite w/Sip Thru Meal, Crush Meds as Allowed, Assist w/All Meals Rehab Medicare G Code Plan Medicare/G Code eligible? 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
--- NOTE | 2016-11-14 20:58 | RADIOLOGY REPORT PS360 ---
CHEST-AP VIEW ONLY Ordering physician: Tristen Campbell MD Age: 71 years Female INDICATION: Possible aspiration. Emesis repeated. Pneumonia.ELEVATED EMESIS..R/O POSSIBLE ASP PROCEDURE: CHEST-AP VIEW ONLY FINDINGS: Prior chest film 10/20/2016. Less optimal inspiration today crowd markings at the left lung base. I see no focal pneumonia. No discrete acute infiltrate. the heart appears normal upper normal size. There is actually less pronounced pulmonary vascularity today than previous study. Pacemaker overlies left chest with atrial and ventricular leads intact. The ventricular peritoneal shunt courses over the right neck and right chest. Not well seen but grossly unchanged. Chest wall unremarkable IMPRESSION ----- Nothing definite acute. Perhaps minor atelectasis left lung base. Pacemaker.
--- NOTE | 2016-11-14 21:03 | RADIOLOGY REPORT PS360 ---
ESOPHAGUS W/CINERADIOGRAPHY INDICATION: ELEVATED EMESIS,ASPIRATION dysphagia Aspiration history. On nectar consistency diet currently TECHNIQUE & FINDINGS: Study performed conjunction with these pathologist Meme horvath. 5 minutes 2 seconds fluoroscopy time Patient study the lateral projection with video esophagram recording. Various barium consistencies utilized to study swallowing mechanism. . The patient demonstrates fairly good strength swallowing mechanism with the initial thin liquid via straw. However with subsequent puree & pudding consistency there is significant compromised oral phase. Lack of AP movement of bolus.. Material remains, for prolonged periods of time in mouth with no swallow. Patient seems to control the bolus and is not lost over the back of the tongue. .. No aspiration observed with markedly compromised oral phase function at this setting. IMPRESSION: Although the patient and fairly good strength of swallowing neck and hasn't with thin liquids. She demonstrated markedly impaired oral function. Please see speech pathology note
--- NOTE | 2016-11-16 06:58 | RADIOLOGY REPORT PS360 ---
CT ABD PELVIS W/O CONTRAST Ordering Physician: Tristen Campbell MD Patient Age: 71 years: Female HISTORY: ELEVATED EMESIS. Aspiration. TECHNIQUE: Helical CT scans abdomen pelvis with no oral nor IV contrast utilized sagittal coronal reconstruction CT workstation COMPARISON is made to previous CT abdomen and pelvis 10/20/2016 FINDINGS Lower thorax bibasilar atelectasis. Appears to be generous thickness distal esophagus. Any history of reflux is a could reflect reflux esophagitis changes. Patient could not raise arms above head. This along with the lack of oral and IV contrast decreases sensitivity Liver. Noncontrast study unremarkable. Spleen. No significant findings. Pancreas unremarkable. Gallbladder. Partially contracted no calcified stones. No biliary ductal dilatation. Adrenals unremarkable. Kidneys. No urinary tract calculi. No obstruction. No significant change since 10/20/2016. Right renal artery stent minimal stranding about both kidneys could reflect mild chronic changes but recommend urinalysis to exclude UTI or thickening on the right. There is a ASSISTANT PROFESSOR OF DRAMA ventriculo peritoneal shunt coursing over the abdomen. It enters the right abdomen to the right of the umbilicus, then loops within the pelvis with tip at the left abdomen. No abnormal fluid collections at tip. Elongated fluid collection seen anterior to the stool filled rectum.- Initially thought this may be fluid in the cul-de-sac, but on the sagittal image appears to be more likely fluid within the vaginal canal it appears to extend to the introitus from the cervix region of the small reviewed remaining postmenopausal uterus sagittal image [id number]. This requires correlation. Consider pelvic ultrasound or pelvic exam to correlate. Does the patient vaginal drainage or discharge.. This collection measuring up to 13 mm AP times nearly 9 cm length . Requires correlation.. Possibly related to ASSISTANT PROFESSOR OF DRAMA shunt but cannot exclude some inflammatory process but no focal area of inflammation abdomen the otherwise seen.. 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 Moderate stool in colon. Recommend Minimal diverticulosis sigmoid and left colon. No diverticulitis There is some stable Increased density at the right inguinal region overlying the femoral artery persist question may be residual from a previous cardiac catheter, resolving hematoma of surprisingly is not improved more since October. Warrants correlation any inflammation here clinically? Osseous structures. No focal lesions. Degenerative disc changes L5/S1. Facet hypertrophy L-spine IMPRESSION: 1.. Elongated fluid collection , posterior to the bladder/anterior to rectum. Suspect more likely fluid filling the vaginal canal, rather than fluid within cul-de-sac. Is there history of vaginal discharge? Suggest pelvic exam or pelvic ultrasound further evaluate 2. Kidneys: mild stranding about right kidney more so than left & subtle fullness of the right pelvicalyceal system again noted, seems to be a chronic feature and fairly stable.. No renal or ureteral calculi. No significant ureteral dilatation 3. ASSISTANT PROFESSOR OF DRAMA shunt catheter enters to the right of umbilicus loops and pelvis with tip towards left abdomen. 4. If hyperemesis persist you may want also consider a follow-up head CT in this patient with ASSISTANT PROFESSOR OF DRAMA shunt 4. Minimal Diverticulosis sigmoid and left colon but no diverticulitis.
--- NOTE | 2016-11-16 06:58 | RADIOLOGY REPORT PS360 ---
CT ABD PELVIS W/O CONTRAST Ordering Physician: Tristen Campbell MD Patient Age: 71 years: Female HISTORY: ELEVATED EMESIS. Aspiration. TECHNIQUE: Helical CT scans abdomen pelvis with no oral nor IV contrast utilized sagittal coronal reconstruction CT workstation COMPARISON is made to previous CT abdomen and pelvis 10/20/2016 FINDINGS Lower thorax bibasilar atelectasis. Appears to be generous thickness distal esophagus. Any history of reflux is a could reflect reflux esophagitis changes. Patient could not raise arms above head. This along with the lack of oral and IV contrast decreases sensitivity Liver. Noncontrast study unremarkable. Spleen. No significant findings. Pancreas unremarkable. Gallbladder. Partially contracted no calcified stones. No biliary ductal dilatation. Adrenals unremarkable. Kidneys. No urinary tract calculi. No obstruction. No significant change since 10/20/2016. Right renal artery stent minimal stranding about both kidneys could reflect mild chronic changes but recommend urinalysis to exclude UTI or thickening on the right. There is a TECHNICAL APPLICATIONS SCIENTIST ventriculo peritoneal shunt coursing over the abdomen. It enters the right abdomen to the right of the umbilicus, then loops within the pelvis with tip at the left abdomen. No abnormal fluid collections at tip. Elongated fluid collection seen anterior to the stool filled rectum.- Initially thought this may be fluid in the cul-de-sac, but on the sagittal image appears to be more likely fluid within the vaginal canal it appears to extend to the introitus from the cervix region of the small reviewed remaining postmenopausal uterus sagittal image [id number]. This requires correlation. Consider pelvic ultrasound or pelvic exam to correlate. Does the patient vaginal drainage or discharge.. This collection measuring up to 13 mm AP times nearly 9 cm length . Requires correlation.. Possibly related to TECHNICAL APPLICATIONS SCIENTIST shunt but cannot exclude some inflammatory process but no focal area of inflammation abdomen the otherwise seen.. 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 Moderate stool in colon. Recommend Minimal diverticulosis sigmoid and left colon. No diverticulitis There is some stable Increased density at the right inguinal region overlying the femoral artery persist question may be residual from a previous cardiac catheter, resolving hematoma of surprisingly is not improved more since October. Warrants correlation any inflammation here clinically? Osseous structures. No focal lesions. Degenerative disc changes L5/S1. Facet hypertrophy L-spine IMPRESSION: 1.. Elongated fluid collection , posterior to the bladder/anterior to rectum. Suspect more likely fluid filling the vaginal canal, rather than fluid within cul-de-sac. Is there history of vaginal discharge? Suggest pelvic exam or pelvic ultrasound further evaluate 2. Kidneys: mild stranding about right kidney more so than left & subtle fullness of the right pelvicalyceal system again noted, seems to be a chronic feature and fairly stable.. No renal or ureteral calculi. No significant ureteral dilatation 3. TECHNICAL APPLICATIONS SCIENTIST shunt catheter enters to the right of umbilicus loops and pelvis with tip towards left abdomen. 4. If hyperemesis persist you may want also consider a follow-up head CT in this patient with TECHNICAL APPLICATIONS SCIENTIST shunt 4. Minimal Diverticulosis sigmoid and left colon but no diverticulitis.
== END ==
LOC: RAD 11-09 10:00
DX: R13.10 Dysphagia, unspecified (principal)